=== PATIENT | female | born 1955 | race Two or more races ===

== ENCOUNTER 2019-06-21 22:27 | Inpatient (IN) | payer OTHER ==
[~2019-06-21] VITALS: Ht 162.6 cm; Wt 59.0 kg
[~2019-06-21 22:27] MED LIST: CRANBERRY425 MG GT; DOCUSATE SODIU100 MG GT; FERROUS SULFAT325 MG GT; FLORASTOR250 MG GT; MAGNESIUM400 M1 GT; MIDODRINE HCL5 MG GT; NORCO 5-325 TA1 EACH GT; OMEPRAZOLE40 M1 GT; SIMVASTATIN10 MG GT; VITAMIN C500 M1 GT
[2019-06-21 22:30] VITALS: BP 96/61
--- NOTE | 2019-06-21 22:30 | NUR ---
ED Nurse Note: Patient brought in by ambulance from [facility] d/t abnormal labs. Patient is on vent and trach, G-tube on upper left abdomen. Patient aao x 2 and non ambulatory. Patient changed into gown and placed on buffet manager. 18G IV on right hand and 20g IV on left forearm established, blood drawn and sent to lab. 16F urinary cueva inserted, patent and draining, urine sample sent to lab. No acute distress noted during assessment.
--- NOTE | 2019-06-21 22:46 | NUR ---
RESPIRATORY NOTE: Pt came in ED via ambulance. Pt is vent-dependent. Placed her on vet w/ her settings from her previous facility. Pt now on SIMV 6, 500VT, 40%, PEEP +5. PS 10. Pt is trach-dependent w/ a cuffed, Portex 8 tube. Pt is alert, follows commands, eyes closed most of the time. B/S rajat. rhonchi/diminished, sxn small amounts of thick, pale-yellow secretions. Vent plugged into red outlet, ambubag at bedside. Pt in no apparent distress at this time. Will continue to monitor pt.
[2019-06-21] MEDS ORDERED: Acetaminophen 650 MG SUPP RECTAL ONE ×2 (22:51→23:00)
--- NOTE | 2019-06-21 22:57 | NUR ---
ED Nurse Note: Xray at bedside
--- NOTE | 2019-06-21 23:04 | Emergency Room Report ---
History of Present Illness General Chief Complaint: Abnormal Labs Source: Patient, Medical Record Present Illness HPI This is a 63-year-old female with a history of multiple sclerosis. She is also senior care patient who is vent dependent and has a feeding tube. She presents with chief complaint of abnormal lab. She was just admitted here last week and discharged a couple days ago for chest pain work-up. She did have anemia of chronic disease. She had work-up for chest pain that was negative. Present today with chief complaint of abnormal lab. Per senior care note hemoglobin is 6.9 and white count was elevated at 14.88. Unable to get any history from this patient. She is nonverbal. Here she noted to be warm and a rectal temperature was 101. Allergies: Coded Allergies: PENICILLINS (Verified Allergy, Unknown, 06/11/19) Patient History Past Medical History: HTN, CAD Past Surgical History: other - G-Tube Pertinent Family History: none Social History: Denies: smoking Last Menstrual Period: na Now: No Immunizations: other Reviewed Nursing Documentation: PMH: Agreed; PSxH: Agreed Nursing Documentation-PMH Past Medical History: No History, Except For Hx Cardiac Problems: Yes Hx Hypertension: Yes Hx Cancer: No Hx Gastrointestinal Problems: Yes - incontinent, GTUBe Hx Neurological Problems: No Review of Systems All Other Systems: limited - secondary to her condition Physical Exam Vital Signs Date Time Temp Pulse Resp B/P (MAP) Pulse Ox O2 Delivery O2 Flow Rate FiO2 06/21/19 22:23 97.9 72 15 93/53 (66) 100 06/21/19 22:42 40 Vitals with fever and hypotension. Rectal temp 101 Sp02 EP Interpretation: reviewed, normal General Appearance: well appearing, alert, mild distress, cachetic, thin, Chronically Ill Head: normocephalic, atraumatic Eyes: bilateral eye PERRL, bilateral eye EOMI ENT: hearing grossly normal, normal pharynx Neck: full range of motion, supple, no meningismus, tracheotomy Respiratory: chest non-tender, rhonchi Cardiovascular #1: regular rate, rhythm, no murmur Gastrointestinal: normal bowel sounds, non tender, no mass, no organomegaly, no bruit, non-distended Musculoskeletal: back normal, normal range of motion Neurologic: alert, grossly normal Skin: warm/dry Lymphatic: no adenopathy Procedures Critical Care Time Critical Care Time Critical care is mandated in this patient who presented with sepsis from HCAP. Patient require my urgent intervention to attenuate the risks of metabolic collapse which may lead to cardiovascular collapse and . Critical care time is 35 minutes excluding any reportable procedure. Critical care time included evaluation, multiple reevaluation, looking at old charts, interpreting laboratory and diagnostic data, discussing case with patient and family and consultants, and charting. Medical Decision Making Diagnostic Impression: Primary Impression: Sepsis Qualified Codes: A41.9 - Sepsis, unspecified organism Additional Impressions: HCAP (healthcare-associated pneumonia) UTI (urinary tract infection) Qualified Codes: N30.00 - Acute cystitis without hematuria Anemia Qualified Codes: D64.9 - Anemia, unspecified ER Course This patient presents with abnormal lab. halfway reported her hemoglobin at 6.9. Here is 8. This is at baseline for her. She is noted to have a fever and has pneumonia on the chest x-ray. She is treated for healthcare associated pneumonia. Her pressure improved after IV fluids. Will admit for IV antibiotics and IV fluid. I contacted Dr. White for admission. EKG Diagnostic Results Rate: normal Rhythm: NSR ST Segments: no acute changes Rhythm Strip Diag. Results EP Interpretation: yes Rate: 86 Rhythm: NSR, no PVC's, no ectopy Chest X-Ray Diagnostic Results Chest X-Ray Diagnostic Results : Chest X-Ray Ordered: Yes # of Views/Limited/Complete: 1 View Indication: Shortness of Breath EP Interpretation: Yes Interpretation: no effusion, no pneumothorax, no acute cardiopulmonary disease, other - LLL infiltrate Impression: Other - LLL infiltrate Electronically Signed by: Norm Womack MD Last Vital Signs Date Time Temp Pulse Resp B/P (MAP) Pulse Ox O2 Delivery O2 Flow Rate FiO2 06/21/19 22:42 79 9 40 06/21/19 22:23 97.9 93/53 (66) 100 Status: unchanged Disposition: ADMITTED INPATIENT Condition: Serious Norm Womack MD Jun 21, 2019 23:03
[2019-06-21 23:13] LABS: BASOPHILS % (AUTO) 0.6 % (0.0-2.0); HEMATOCRIT 23.5 % (37.0-47.0); MEAN CORPUSCULAR VOLUME 85 FL (80-99); MONOCYTES % (AUTO) 8.1 % (1.0-10.0); NEUTROPHILS % (AUTO) 80.3 % (45.0-75.0); PLATELET COUNT 358 K/UL (150-450); RED BLOOD COUNT 2.78 M/UL (4.20-5.40); RED CELL DISTRIBUTION WIDTH 12.2 % (11.6-14.8); WHITE BLOOD COUNT 15.8 K/UL (4.8-10.8)
[2019-06-21 23:15] LABS: APPEARANCE,URINE CLEAR; BILIRUBIN, URINE NEGATIVE (NEGATIVE); COLOR,URINE PALE YELLOW; GLUCOSE, URINE (UA) NEGATIVE (NEGATIVE); KETONES,URINE NEGATIVE (NEGATIVE); LEUKOCYTE ESTERASE ,URINE 3+ (NEGATIVE); NITRITE,URINE NEGATIVE (NEGATIVE); PH,URINE 9 (4.5-8.0); PROTEIN,URINE 2+ (NEGATIVE); UROBILINOGEN,URINE NORMAL MG/DL (0.0-1.0)
[2019-06-21] MEDS ORDERED: Cefepime HCl 1 GM in D5W 55 ML IVPB ONE (23:15)
[2019-06-21 23:17] LABS: ANION GAP 13 mmol/L (5-15); BLOOD UREA NITROGEN 25 mg/dL (7-18); CALCIUM 9.5 MG/DL (8.5-10.1); CARBON DIOXIDE 24 MMOL/L (21-32); CHLORIDE 104 MMOL/L (98-107); CREATININE 0.9 MG/DL (0.55-1.30); POTASSIUM 4.4 MMOL/L (3.5-5.1); SODIUM 140 MMOL/L (136-145)
[2019-06-21 23:30] LABS: ALANINE AMINOTRANSFERASE 54 U/L (12-78); ALBUMIN 2.3 G/DL (3.4-5.0); ALBUMIN/GLOBULIN RATIO 0.5 (1.0-2.7); ALKALINE PHOSPHATASE 261 U/L (46-116); ASPARTATE AMINO TRANSFERASE 38 U/L (15-37); BILIRUBIN,TOTAL 0.4 MG/DL (0.2-1.0); CKMB < 0.5 NG/ML (0.0-3.6); CREATINE KINASE < 7 U/L (26-308)
--- NOTE | 2019-06-21 23:48 | NUR ---
ED Nurse Note: Left forearm redness and itching, ERMD notified, per Dr. Womack, continue to infuse IV antibiotics.
--- NOTE | 2019-06-21 23:48 | NUR ---
ED Nurse Note: Rechecked rectal temperature, 101.7 F, ERMD aware.
[2019-06-22] VITALS (9 sets, daily range): BP systolic 90–125; BP diastolic 53–65
--- NOTE | 2019-06-22 00:01 | Emergency Room Report ---
Sepsis Event Note Evaluation Current Stage of Sepsis: Sepsis Possible Source: Pulmonary Focused Exam Allergies: Coded Allergies: PENICILLINS (Verified Allergy, Unknown, 06/11/19) Date Exam Occurred: Jun 22, 2019 Time Exam Occurred: 00:01 Laboratory Studies Laboratory Tests Test 06/21/19 22:05 06/21/19 23:06 White Blood Count 15.8 K/UL (4.8-10.8) H Red Blood Count 2.78 M/UL (4.20-5.40) L Hemoglobin 8.0 G/DL (12.0-16.0) L Hematocrit 23.5 % (37.0-47.0) L Mean Corpuscular Volume 85 FL (80-99) Mean Corpuscular Hemoglobin 28.9 PG (27.0-31.0) Mean Corpuscular Hemoglobin Concent 34.1 G/DL (32.0-36.0) Red Cell Distribution Width 12.2 % (11.6-14.8) Platelet Count 358 K/UL (150-450) Mean Platelet Volume 5.2 FL (6.5-10.1) L Neutrophils (%) (Auto) 80.3 % (45.0-75.0) H Lymphocytes (%) (Auto) 10.0 % (20.0-45.0) L Monocytes (%) (Auto) 8.1 % (1.0-10.0) Eosinophils (%) (Auto) 1.0 % (0.0-3.0) Basophils (%) (Auto) 0.6 % (0.0-2.0) Sodium Level 140 MMOL/L (136-145) Potassium Level 4.4 MMOL/L (3.5-5.1) Chloride Level 104 MMOL/L (98-107) Carbon Dioxide Level 24 MMOL/L (21-32) Anion Gap 13 mmol/L (5-15) Blood Urea Nitrogen 25 mg/dL (7-18) H Creatinine 0.9 MG/DL (0.55-1.30) Estimat Glomerular Filtration Rate > 60 mL/min (>60) Glucose Level 88 MG/DL (74-106) Lactic Acid Level 1.30 mmol/L (0.4-2.0) Calcium Level 9.5 MG/DL (8.5-10.1) Total Bilirubin 0.4 MG/DL (0.2-1.0) Aspartate Amino Transf (AST/SGOT) 38 U/L (15-37) H Alanine Aminotransferase (ALT/SGPT) 54 U/L (12-78) Alkaline Phosphatase 261 U/L (46-116) H Total Creatine Kinase < 7 U/L (26-308) L Creatine Kinase MB < 0.5 NG/ML (0.0-3.6) Creatine Kinase MB Relative Index 0.0 Troponin I 0.000 ng/mL (0.000-0.056) Total Protein 7.3 G/DL (6.4-8.2) Albumin 2.3 G/DL (3.4-5.0) L Globulin 5.0 g/dL Albumin/Globulin Ratio 0.5 (1.0-2.7) L Urine Color Pale yellow Urine Appearance Clear Urine pH 9 (4.5-8.0) Urine Specific Palms 1.015 (1.005-1.035) Urine Protein 2+ (NEGATIVE) H Urine Glucose (UA) Negative (NEGATIVE) Urine Ketones Negative (NEGATIVE) Urine Blood Negative (NEGATIVE) Urine Nitrite Negative (NEGATIVE) Urine Bilirubin Negative (NEGATIVE) Urine Urobilinogen Normal MG/DL (0.0-1.0) Urine Leukocyte Esterase 3+ (NEGATIVE) H Urine RBC 0-2 /HPF (0 - 2) Urine WBC 20-30 /HPF (0 - 2) H Urine Squamous Epithelial Cells Few /LPF (NONE/OCC) Urine Bacteria Few /HPF (NONE) Vital Signs Last 24 Hour Vital Signs Date Time Temp Pulse Resp B/P (MAP) Pulse Ox O2 Delivery O2 Flow Rate FiO2 06/21/19 23:22 101.7 06/21/19 22:42 79 9 40 06/21/19 22:30 101.2 82 18 96/61 100 Trach Collar 40 06/21/19 22:23 97.9 72 15 93/53 (66) 100 Respiratory Exam: Rhonchi Cardiovascular Exam: RRR Capillary Refill: Less Than 2 Seconds Peripheral Pulse: Strong Pulse Location: Radial Skin Exam: Normal Turgor Norm Womack MD Jun 22, 2019 00:01
[2019-06-22] MEDS ORDERED: ATORVASTATIN CA20 MG GT (00:13)
[2019-06-22] MEDS ORDERED: Acetaminophen 650 MG SUPP RECTAL PRN (00:15)
--- NOTE | 2019-06-22 00:39 | NUR ---
ED Nurse Note: Report given to ALEX Daniels in SDU.
--- NOTE | 2019-06-22 01:20 | NUR ---
ED Nurse Note: Patient transferred via gurney on ACLS protocol and lunchroom monitor to SDU accompanied by 2 RNs and RT in stable condition.
--- NOTE | 2019-06-22 01:30 | NUR ---
NURSE NOTES: Received report from ALEX Suazo, pt. in bed awake, opens eyes to name- A/O x's 1-2, no signs or symptoms of acute cardiac or respiratory distress noted, bed alarm on, side rails up x's3 and safety brakes engaged, conveyor monitor placed, bed side teaching done, pt. oriented to room, full body assessment done- skin intact, pt. is on ventilator- SIMV 6, TV 500, Fio2 at 40%, peep 5 and pressure support 10- no distress noted- pt. has G tube intact and patent- no residual noted, bed bath given and skin intact, LFA 20G- IV intact and patent, Rt. hand 18G- IV intact and patent, safety measures continued, will continue with plan of care. Will contact primary MD for admission orders- pt. remains stable.
--- NOTE | 2019-06-22 02:20 | NUR ---
NURSE NOTES: Left message for DR. White for admitting orders- awaiting for call back from doctor.
--- NOTE | 2019-06-22 03:11 | NUR ---
NURSE NOTES: Left second message for Dr. White, for admission orders- awaiting for call back from doctor. .
--- NOTE | 2019-06-22 03:53 | NUR ---
NURSE NOTES: Left third message for Dr. White, for admission orders- awaiting for call back from doctor.
--- NOTE | 2019-06-22 03:54 | NUR ---
NURSE NOTES: miller supervisor Rahel tapia unable to reach DR. White for admission orders- she will try to call him and let me know what happens.
--- NOTE | 2019-06-22 04:05 | NUR ---
NURSE NOTES: per planning supervisor- okay to call DR. Shane as we were not able to reach DR. White.
--- NOTE | 2019-06-22 04:09 | NUR ---
NURSE NOTES: called DR. Patel- for admission orders- per DR. Shane to continue all home medications except- Floraster- all nursing homes medications- read back to doctor, also to continue feeding as fpc Osmolite 1.5 at 50cc/hr- for 20 hours, vent settings to continue Simv 6, TV 500, Fio2 40%, peep 5, and pressure support 10- orders read back and carried out.
[2019-06-22] MEDS: Magnesium Oxide 400mg tab GT SCH (08:13)
--- NOTE | 2019-06-22 09:53 | NUR ---
NURSE NOTES: Left message with DR. Guerrero office- with Anupama- if doctor has any additional orders for last nights admission.
--- NOTE | 2019-06-22 10:19 | NUR ---
NURSE NOTES: Orders received by DR. White- will carry out orders.
[2019-06-22] MEDS ORDERED: Acetaminophen 650mg/20.3ml GT PRN (10:30)
--- NOTE | 2019-06-22 10:34 | Diagnostic Imaging Report ---
Indication: Shortness of breath Technique: One view of the chest Comparison: 06/14/2019 Findings: Again demonstrated is retrocardiac and left lower lobe consolidation, which appears increased since prior study. There is also some patchy consolidation in the left upper lobe. Again demonstrated is right basilar atelectasis. The heart size is normal. There is a tracheostomy in good position. Also noted are a gastrostomy and right upper quadrant surgical clips. Impression: Increased retrocardiac and left lower lobe consolidation
--- NOTE | 2019-06-22 10:38 | NUR ---
NURSE NOTES: made doctor aware of Hemiglobin- per DR. White- to order 2 Units PRBC and order SCD for DVT- orders carried out.
--- NOTE | 2019-06-22 10:54 | NUR ---
*-* INSURANCE *-* ALL AVAILABLE CLINICALS HAVE BEEN FAXED TO: JARRED DORSEY AUTH# [id number] FAX ALL CLINICALS TO [phone]
--- NOTE | 2019-06-22 11:03 | NUR ---
HAND-OFF: Report given to Edelmira RN, pt. remains stable and no signs of distress noted.
--- NOTE | 2019-06-22 11:04 | NUR ---
HAND-OFF: Report given to Luis RN, pt. remains stable and no sigsn of distress noted- aware to f/u w/ on zosyn as pt. has pcn allergies. and also blood transfuion.
--- NOTE | 2019-06-22 11:25 | NUR ---
HAND-OFF: Report given to . received bed side report from Kumar JOHNSON.
--- NOTE | 2019-06-22 11:25 | NUR ---
NURSE NOTES: RECEIVED PT WITH HOB ELEVATED 45 DEGREE AWAKE & ALERT TRACH TO VENT.PT TOLERATING WELL CURRENTS VENT SETTINGS,RENDERED TRACH CARE AND ORAL HYGIENE,MOD AMT OF WHITE TICK SECRETIONS NOTED.PT INCONT OF URINE,RENDERED TOTAL NSG CARE DONE ,GIVEN BATH BATH AND PERINEAL CARE .PT KEEP CLEAN AND DRY POSSIBLE.PT USING PUR-WICK AT THIS TIME. WILL CONT TO MONITOR.
--- NOTE | 2019-06-22 11:41 | NUR ---
RD ASSESSMENT & RECOMMENDATIONS SEE CARE ACTIVITY FOR COMPLETE ASSESSMENT DAILY ESTIMATED NEEDS: Needs based on Critical care, underweight 44kg 30-35 kcals/kg 3422-4135 total kcals 1.2-2 g protein/kg 53-88 g total protein 25-30 mL/kg 0855-4486 total fluid mLs NUTRITION DIAGNOSIS: Swallowing difficulty related respiratory status as evidenced by pt is Trach and PEG dep. CURRENT TF:Osmolite 1.5 @ 50ml/hr x 20 hrs ENTERAL NUTRITION RECOMMENDATIONS: Osmolite 1.5 @ 50ml/hr x 20 hrs to provide 1000ml, 1500kcal, 62.7g prot, 762ml free water - Maintain current TF- meets 100% est kcal/prot needs - Flush per MD, HOB over 30 degrees ADDITIONAL RECOMMENDATIONS: 1) Calibrated bedscale wt 2) Check lytes daily, replete as needed
[2019-06-22] MEDS ORDERED: Piperacillin/Tazobactam 3.375 GM in NS 110 ML IVPB SCH (12:00)
--- NOTE | 2019-06-22 12:38 | NUR ---
CASE MANAGEMENT:INITIAL REVIEW 63 YR OLD FEMALE BIBA FROM [facility] CC;ABNORMAL LABS SI;SEPSIS. HCA PNA. ANEMIA. UTI. T 101.7 P 85 RR 9 BP 93/53 100% TRACH COLLAR WBC 15.8 H/H 8.0/23.5 BUN 25 ALK PHOS 261 UA+ PROTEIN, LEUKOCYTE, WBC CXR - Increased retrocardiac and left lower lobe consolidation IS;IVF NS BOLUS X1 ACETAMINOPHEN SUPP RECTAL X1 CEFEPIME IV X1 LEVAQUIN IV X1 ADMITTED TO SDU SDU STATUS DCP;FROM [facility]
--- NOTE | 2019-06-22 13:30 | NUR ---
NURSE NOTES:PLACED A TELEPHONE CALL TO PRADEEP HUSAIN REGARDING WE NEED TELEPHONE CONSENT FOR BLOOD TRANSFUSION. MESSAGE LEFT ON EMERGENCY VOICE MAIL . A WAITING FOR MR HUSAIN TO CALL ME BACK. NADEEM VELAZQUEZ OF BLOOD BANK MADE AWARE & NOTIFIED REGARDING NO CONSENT AVAILABLE AT THIS TIME AND AWAITING FOR MR RODRIGUE PRADEEP IS THE SON OF THE PT. WILL CONT TO MONITOR.
--- NOTE | 2019-06-22 13:34 | NUR ---
RADIOLOGY DEPT., CHEST X-RAY DONE.-P.DYE
[2019-06-22] MEDS: Vancomycin 750 MG in NS 275 ML IVPB SCH (14:23)
--- NOTE | 2019-06-22 14:48 | Diagnostic Imaging Report ---
Indication: Cough Technique: One view of the chest Comparison: 06/21/2019 Findings: There is a tracheostomy. There is increased infiltrate and pleural fluid on the left. Right lung and pleural space are clear. The heart size is normal. Cholecystectomy clips are again demonstrated Impression: Increasing left-sided infiltrate and pleural fluid, over one day
--- NOTE | 2019-06-22 19:00 | NUR ---
NURSE NOTES:PT HGB 8.O, DR MAR ORDER TO GIVE 2UNITS OF PRBC. STARTED ON 1ST UNIT OF BRBC TRANSFUSION PER M.D ORDERS.PT TOLERATING WELL BLOOD TRANSFUSION ,NO S/S OF ANY ADVERSE REACTION NOTED . WILL CONT TO MONITOR.
--- NOTE | 2019-06-22 19:10 | NUR ---
NURSE NOTES: Received report from ALEX Smith, pt. in bed awake, opens eyes to name and spontaneously- A/O x's 1-2, no signs or symptoms of acute cardiac or respiratory distress noted, bed alarm on, side rails up x's3 and safety brakes engaged, handicraft or hobby shop manager on, pt. is on ventilator- SIMV 6, TV 500, Fio2 at 40%, peep 5 and pressure support 10- no distress noted- pt. has G tube intact and patent running Osmolite 1.5 at 50cc/hr- no residual noted, HOB elevated, LFA 20G- IV intact and patent- running 1 unit of PRBC- pt. appears to be tolerating blood transfusion well, Rt. hand 18G- IV intact and patent running NS at 100cc/hr, safety measures continued, will continue with plan of care.
--- NOTE | 2019-06-22 19:15 | NUR ---
NURSE NOTES: PT TOLERATING WELL BLOOD TRANSFUSION, NO EVIDENCE OF ANY ADVERSE REACTIONS NOTED AT THIS TIME,V/S STABLE.WILL CONT TO MONITOR.
--- NOTE | 2019-06-22 19:17 | NUR ---
HAND-OFF: Report given to .ABIMBOLA JOHNSON.
--- NOTE | 2019-06-22 19:28 | NUR ---
NURSE NOTES: order received by DR. White to not order Zosyn as pt. has allergies to PCN- but to order Cefepime 1 gram IVPB q12 hours-orders carried out.
[2019-06-22] MEDS ORDERED: Cefepime HCl 1 GM in D5W 55 ML IVPB SCH ×2 (21:00→23:00)
--- NOTE | 2019-06-22 21:11 | NUR ---
NURSE NOTES: 1 unit of PRBC complete pt. appears to have tolerated blood transfusion well- VS temp 98.1 axillary, resp 18, pulse 63, b/p 114/59 and pulse ox 100%-will continue to monitor pt. and start 2nd unit of PRBC.
--- NOTE | 2019-06-22 21:30 | NUR ---
NURSE NOTES: 2nd unit of PRBC started- pre transfusion VS temp 98.0 axillary, pulse 70, b/p 116/65, pulse ox 100% and resp 18- will continue to monitor pt. and with plan of care.
--- NOTE | 2019-06-22 21:45 | NUR ---
NURSE NOTES: 15 minutes after blood transfusion vital signs taken -pt. appears to be tolerating blood transfusion well-no distress noted, B/P 104/55, pulse ox 100%, respirations 18, pulse 60 and temp 98.1 axillary- will continue to monitor pt. and with plan of care.
[2019-06-23] VITALS: BP 108/60
--- NOTE | 2019-06-23 | NUR ---
NURSE NOTES: blood transfusion complete - pt. appears to have tolerated blood transfusion well- no allergic reactions noted- Vital signs respirations 20, pulse ox 100%, b/p 108/60, temp 98.0 axillary and pulse 65- will continue to monitor pt. and with plan of care.
[2019-06-23] MEDS: Cefepime HCl 1 GM in D5W 55 ML IVPB SCH ×3 (00:07→23:00)
[2019-06-23] MEDS: Vancomycin 750 MG in NS 275 ML IVPB SCH ×2 (01:42→14:04)
[2019-06-23 04:00] VITALS: BP 100/56
[2019-06-23 04:56] LABS: ANION GAP 9 mmol/L (5-15); BLOOD UREA NITROGEN 14 mg/dL (7-18); CARBON DIOXIDE 25 MMOL/L (21-32); CHLORIDE 110 MMOL/L (98-107); CREATININE 0.7 MG/DL (0.55-1.30); POTASSIUM 3.6 MMOL/L (3.5-5.1); SODIUM 144 MMOL/L (136-145)
[2019-06-23 05:00] LABS: BASOPHILS % (AUTO) 0.7 % (0.0-2.0); EOSINOPHILS % (AUTO) 3.3 % (0.0-3.0); HEMATOCRIT 29.2 % (37.0-47.0); HEMOGLOBIN 10.1 G/DL (12.0-16.0); LYMPHOCYTES % (AUTO) 12.7 % (20.0-45.0); MEAN CORPUSCULAR VOLUME 86 FL (80-99); NEUTROPHILS % (AUTO) 72.3 % (45.0-75.0); PLATELET COUNT 294 K/UL (150-450); RED CELL DISTRIBUTION WIDTH 12.3 % (11.6-14.8); WHITE BLOOD COUNT 11.4 K/UL (4.8-10.8)
--- NOTE | 2019-06-23 07:14 | NUR ---
HAND-OFF: Report given to All Rn, pt. remains stable and no signs of distress noted.
--- NOTE | 2019-06-23 07:15 | NUR ---
NURSE NOTES: Receive patient in bed. Vent dependent. Purewick inplace. No respiratory distress. On continuous IVF per order. SB in personnel monitor. Contact isolation observed. Will continue plan of care.
[2019-06-23 08:00] VITALS: BP 91/47
--- NOTE | 2019-06-23 08:32 | General Progress Note ---
Assessment/Plan Assessment/Plan: fevers possible sepsis pneumonia UTI MS respiratory failure anemia s/p transfusion PLAN antibiotics check final cultures monitor fever curve monitor labs vent for now impression, plan, and exam edited and reviewed in detail care discussed with RN Subjective ROS Limited/Unobtainable: Yes Allergies: Coded Allergies: PENICILLINS (Verified Allergy, Unknown, 06/11/19) Subjective care noted no fevers Objective Last 24 Hour Vital Signs Date Time Temp Pulse Resp B/P (MAP) Pulse Ox O2 Delivery O2 Flow Rate FiO2 06/23/19 04:37 60 18 40 06/23/19 04:00 40 06/23/19 04:00 Mechanical Ventilator 06/23/19 04:00 98.1 62 18 100/56 (71) 100 06/23/19 03:34 56 06/23/19 03:06 61 20 40 06/23/19 01:05 86 23 40 06/23/19 00:00 98.0 65 20 108/60 (76) 100 06/23/19 00:00 Mechanical Ventilator 06/23/19 00:00 40 06/23/19 00:00 74 06/22/19 23:08 63 25 40 06/22/19 21:45 98.1 60 18 104/55 (71) 100 06/22/19 21:30 98.0 70 18 116/65 (82) 100 06/22/19 21:26 59 18 40 06/22/19 21:09 98.1 63 18 110/57 (74) 100 06/22/19 20:00 40 06/22/19 20:00 98.0 64 18 110/57 (74) 100 06/22/19 20:00 Mechanical Ventilator 06/22/19 19:43 72 06/22/19 18:47 53 17 40 06/22/19 17:08 61 14 40 06/22/19 16:00 98.5 98 18 125/61 (82) 98 06/22/19 16:00 72 06/22/19 16:00 Mechanical Ventilator 06/22/19 14:29 68 15 40 06/22/19 13:09 68 12 40 06/22/19 12:00 102 06/22/19 12:00 Mechanical Ventilator 06/22/19 12:00 97.5 106 19 123/59 (80) 98 06/22/19 10:50 73 18 40 06/22/19 09:19 76 26 40 Intake and Output 06/22/19 06/23/19 19:00 07:00 Intake Total 1416.666 ml 2183.666 ml Output Total 200 ml Balance 1416.666 ml 1983.666 ml Free Water 200 ml 50 ml IV Total 866.666 ml 1533.666 ml Tube Feeding 350 ml 600 ml Output Urine Total 200 ml # Voids 3 2 # Bowel Movements 2 Laboratory Tests 06/23/19 03:30: White Blood Count 11.4H, Red Blood Count 3.40L, Hemoglobin 10.1L, Hematocrit 29.2L, Mean Corpuscular Volume 86, Mean Corpuscular Hemoglobin 29.6, Mean Corpuscular Hemoglobin Concent 34.5, Red Cell Distribution Width 12.3, Platelet Count 294, Mean Platelet Volume 5.2L, Neutrophils (%) (Auto) 72.3, Lymphocytes ( %) (Auto) 12.7L, Monocytes (%) (Auto) 11.0H, Eosinophils (%) (Auto) 3.3H, Basophils (%) (Auto) 0.7, Sodium Level 144, Potassium Level 3.6, Chloride Level 110H, Carbon Dioxide Level 25, Anion Gap 9, Blood Urea Nitrogen 14, Creatinine 0.7, Estimat Glomerular Filtration Rate > 60, Glucose Level 104, Calcium Level 9.0 Height (Feet): 5 Height (Inches): 4.00 Weight (Pounds): 130 Objective WDWN NAD trach clear breath sounds bilaterally without rhonchi or wheeze [id number] without MRG NABS nontender no HSM; GT no CCE nonfocal weak Hank White MD Jun 23, 2019 08:32
[2019-06-23] MEDS: Magnesium Oxide 400mg tab GT SCH (09:37)
--- NOTE | 2019-06-23 11:45 | History and Physical Report ---
DATE OF ADMISSION: 06/22/2019 REASON FOR ADMISSION: Fever and anemia. HISTORY OF PRESENT ILLNESS: This is a 63-year-old female who was noted to have low hemoglobin at the [facility]. The patient was just recently discharged after an aggressive workup. The patient now presented with hemoglobin repeated at 8. White cell count is 15.8. The patient was also noted to have fever. The patient has mentioned just recently discharged from the hospital. PAST MEDICAL HISTORY: Notable for hypercholesterolemia, negative endoscopy and colonoscopy, multiple sclerosis, chronic respiratory failure, tracheostomy. MEDICATIONS: Reviewed. ALLERGIES: Reviewed. SOCIAL HISTORY: Resides at [facility]. PHYSICAL EXAMINATION: GENERAL: A well-developed female, chronically ill, debilitated. VITAL SIGNS: reviewed, sats 100%. HEENT: Negative. NECK: Supple. Tracheostomy in midline. LUNGS: With moderate breath sounds. CARDIAC: S1, S2. Regular rate and rhythm. ABDOMEN: Soft. G-tube. EXTREMITIES: No edema. LABORATORY DATA: Reviewed. White count 15.8, hemoglobin 8. Chemistries noted. BUN 25 and albumin is 2.3. IMPRESSION: 1. Respiratory failure. 2. Fever. 3. Possible sepsis. 4. Leukocytosis. 5. Anemia without any evidence of GI bleed. 6. Left-sided infiltrate with parapneumonic effusion. 7. Respiratory failure, chronic. 8. Tracheostomy. 9. Severe protein-calorie malnutrition. RECOMMENDATIONS: Supportive care, intravenous antibiotics. Transfuse hemoglobin monitor. Resume usp medications and follow clinically for further changes. Obtain ID evaluation. Follow up cultures and recommend further for changes and stabilize and discharge the patient back to nursing home facility. Hank White M.D. DR: SANDRA JOB#: [id number] CC: GORDON
[2019-06-23 12:00] VITALS: BP 111/60
--- NOTE | 2019-06-23 12:29 | NUR ---
CASE MANAGEMENT:INITIAL REVIEW 63 YR OLD FEMALE BIBA FROM [facility] CC;ABNORMAL LABS SI;SEPSIS. HCA PNA. ANEMIA. UTI. 101.7 81 9 93/53 100% TRACH FIO2 40% WBC 15.8 H/H 8.0/23.5 BUN 25 AST 38 CXR - Increased retrocardiac and left lower lobe consolidation IS;IVF NS BOLUS X1 CEFEPIME IV X1 LEVAQUIN IV X1 ADMITTED TO SDU SDU STATUS DCP;FROM [facility]
[2019-06-23 16:00] VITALS: BP 110/70
--- NOTE | 2019-06-23 19:24 | NUR ---
HAND-OFF: Report given to Richard Bess RN.
--- NOTE | 2019-06-23 19:25 | NUR ---
NURSE NOTES: Received report from Kathrin RN, pt. in bed awake, opens eyes to name and spontaneously- A/O x's 1-2, no signs or symptoms of acute cardiac or respiratory distress noted, bed alarm on, side rails up x's3 and safety brakes engaged, hospital monitor on, pt. is on ventilator- SIMV 6, TV 500, Fio2 at 40%, peep 5 and pressure support 10- no distress noted- pt. has G tube intact and patent running Osmolite 1.5 at 50cc/hr- no residual noted, HOB elevated, LFA 20G- IV intact and patent, Rt. hand 18G- IV intact and patent running NS at 100cc/hr, safety measures continued, will continue with plan of care.
[2019-06-23 20:00] VITALS: BP 109/58
[2019-06-24] VITALS: BP 111/61
[2019-06-24] MEDS: Vancomycin 750 MG in NS 275 ML IVPB SCH ×2 (01:29→14:12)
[2019-06-24 04:00] VITALS: BP 101/53
--- NOTE | 2019-06-24 07:12 | NUR ---
HAND-OFF: Report given to KathrinRN, pt. remains stable and no signs of distress noted.
--- NOTE | 2019-06-24 07:13 | NUR ---
NURSE NOTES: Received patient in bed. Vent dependent. No respiratory distress. On SIMV mode. On continuous IVF per order of NS running at 100ml/hour. SB in head of digital advertising & integration. Purewick remains inplace connected to suction device with canister. Contact isolation observed. Will continue plan of care.
[2019-06-24 08:00] VITALS: BP 102/55
--- NOTE | 2019-06-24 08:01 | General Progress Note ---
Assessment/Plan Assessment/Plan: fevers possible sepsis pneumonia UTI MS respiratory failure anemia s/p transfusion PLAN antibiotics as is check final cultures VRE colonized monitor fever curve monitor labs vent for now hope to dc soon impression, plan, and exam edited and reviewed in detail care discussed with RN Subjective ROS Limited/Unobtainable: Yes Allergies: Coded Allergies: PENICILLINS (Verified Allergy, Unknown, 06/11/19) Subjective care noted no fevers cultures reviewed Objective Last 24 Hour Vital Signs Date Time Temp Pulse Resp B/P (MAP) Pulse Ox O2 Delivery O2 Flow Rate FiO2 06/24/19 07:04 54 27 40 06/24/19 04:44 68 23 40 06/24/19 04:00 98.0 56 22 101/53 (69) 100 06/24/19 04:00 40 06/24/19 04:00 Mechanical Ventilator 06/24/19 03:34 50 06/24/19 02:46 58 23 40 06/24/19 00:45 62 19 40 06/24/19 00:00 97.4 52 20 111/61 (78) 100 06/24/19 00:00 Mechanical Ventilator 06/24/19 00:00 40 06/23/19 23:40 56 06/23/19 22:46 52 16 40 06/23/19 21:09 62 15 40 06/23/19 20:00 Mechanical Ventilator 06/23/19 20:00 40 06/23/19 20:00 98.1 54 22 109/58 (75) 100 06/23/19 19:38 58 06/23/19 18:59 53 18 40 06/23/19 17:30 56 20 40 06/23/19 16:00 98.1 57 20 110/70 (83) 100 06/23/19 16:00 Mechanical Ventilator 06/23/19 15:35 47 06/23/19 15:21 51 20 40 06/23/19 13:21 50 18 40 06/23/19 12:00 Mechanical Ventilator 06/23/19 12:00 97.2 60 18 111/60 (77) 100 06/23/19 11:32 50 06/23/19 11:15 53 27 40 06/23/19 09:16 50 15 40 06/23/19 08:15 66 Intake and Output 06/23/19 06/24/19 19:00 07:00 Intake Total 1738.333 ml 2122.666 ml Output Total 650 ml Balance 1738.333 ml 1472.666 ml Free Water 100 ml 50 ml IV Total 1088.333 ml 1472.666 ml Tube Feeding 450 ml 600 ml Other 100 ml Output Urine Total 650 ml # Voids 2 # Bowel Movements 2 Laboratory Tests 06/24/19 00:23: Vancomycin Level Trough 18.4H Height (Feet): 5 Height (Inches): 4.00 Weight (Pounds): 130 Objective WDWN NAD trach clear breath sounds bilaterally without rhonchi or wheeze [id number] without MRG NABS nontender no HSM; GT no CCE nonfocal weak Hank White MD Jun 24, 2019 08:01
[2019-06-24] MEDS: Magnesium Oxide 400mg tab GT SCH (08:24)
[2019-06-24 12:00] VITALS: BP 92/51
[2019-06-24] MEDS: Cefepime HCl 1 GM in D5W 55 ML IVPB SCH ×2 (13:23→23:14)
[2019-06-24] MEDS ORDERED: Tubing IV Secondary IV ONE (14:10)
[2019-06-24] MEDS ORDERED: NS 275ml ONE (14:10)
[2019-06-24] MEDS ORDERED: Tubing Blood Filter IV ONE (14:10)
--- NOTE | 2019-06-24 15:00 | NUR ---
NURSE NOTES: Patient's son at bedside.
[2019-06-24 16:00] VITALS: BP 102/52
--- NOTE | 2019-06-24 19:29 | NUR ---
HAND-OFF: Report given to Richard Bess RN.
--- NOTE | 2019-06-24 19:30 | NUR ---
NURSE NOTES: Received report from ALEX Pinon, pt. in bed awake, opens eyes to name and spontaneously- A/O x's 1-2, no signs or symptoms of acute cardiac or respiratory distress noted, bed alarm on, side rails up x's3 and safety brakes engaged, call light within easy reach, silk screen printer helper on, pt. is on ventilator- SIMV 6, TV 500, Fio2 at 40%, peep 5 and pressure support 10- no distress noted- pt. has G tube intact and patent running Osmolite 1.5 at 50cc/hr- no residual noted, HOB elevated, pure wick set to suction, Rt. hand 22G- IV intact and patent running NS at 100cc/hr, safety measures continued, will continue with plan of care.
[2019-06-24 20:00] VITALS: BP 108/63
[2019-06-25] VITALS: BP 114/69
[2019-06-25] MEDS: Vancomycin 750 MG in NS 275 ML IVPB SCH (00:27)
[2019-06-25 04:00] VITALS: BP 100/56
--- NOTE | 2019-06-25 07:02 | NUR ---
HAND-OFF: Report given to Jacek RN, pt. remains stable and no signs of distress noted.
--- NOTE | 2019-06-25 07:05 | NUR ---
NURSE NOTES: Report received from Maria Alejandra Daniels RN.pt asleep tolerating well, noted no resp distress with current ordered vent settings,no signs of pain or discomfort,S-Bradycardia on the monitor when asleep GT feeding Nepro at 20 ml/hr no residual noted,condom cath in placed draining yellow urine,SR up x2 HOB elevated,call light within reach ,bed lock in lowest position will continue with plans of care.
[2019-06-25 08:00] VITALS: BP 110/55
[2019-06-25] MEDS: Magnesium Oxide 400mg tab GT SCH (08:40)
[2019-06-25] MEDS ORDERED: Tubing IV Secondary IV ONE (10:01)
--- NOTE | 2019-06-25 10:36 | General Progress Note ---
Assessment/Plan Assessment/Plan: fevers possible sepsis pneumonia UTI MS respiratory failure anemia s/p transfusion PLAN antibiotics as is reviewed final cultures VRE colonized monitor fever curve monitor labs vent for now dc to snf impression, plan, and exam edited and reviewed in detail care discussed with RN Subjective ROS Limited/Unobtainable: Yes Allergies: Coded Allergies: PENICILLINS (Verified Allergy, Unknown, 06/11/19) Subjective care noted no fevers cultures reviewed and finalized Objective Last 24 Hour Vital Signs Date Time Temp Pulse Resp B/P (MAP) Pulse Ox O2 Delivery O2 Flow Rate FiO2 06/25/19 09:16 52 18 40 06/25/19 07:29 47 12 40 06/25/19 05:58 51 19 40 06/25/19 04:00 97.3 59 20 100/56 (71) 100 06/25/19 04:00 Mechanical Ventilator 06/25/19 03:34 49 06/25/19 03:25 56 17 40 06/25/19 00:38 62 18 40 06/25/19 00:00 Mechanical Ventilator 06/25/19 00:00 40 06/25/19 00:00 97.9 58 20 114/69 (84) 100 06/24/19 23:40 51 06/24/19 22:54 56 17 40 06/24/19 21:19 59 17 40 06/24/19 20:00 97.7 54 22 108/63 (78) 100 06/24/19 20:00 Mechanical Ventilator 06/24/19 20:00 40 06/24/19 19:47 52 06/24/19 19:04 48 18 40 06/24/19 17:30 49 13 40 06/24/19 16:54 50 06/24/19 16:00 98.4 47 11 102/52 (69) 100 06/24/19 16:00 Mechanical Ventilator 06/24/19 14:59 50 15 40 06/24/19 13:29 48 14 40 06/24/19 12:00 Mechanical Ventilator 06/24/19 12:00 98.1 47 18 92/51 (65) 100 06/24/19 11:40 46 06/24/19 11:21 46 13 40 Intake and Output 06/24/19 06/25/19 19:00 07:00 Intake Total 2180.000 ml 2279.666 ml Output Total 1200 ml 1400 ml Balance 980.000 ml 879.666 ml Free Water 100 ml 50 ml IV Total 1230.000 ml 1629.666 ml Tube Feeding 650 ml 600 ml Other 200 ml Output Urine Total 1200 ml 1400 ml # Bowel Movements 2 1 Height (Feet): 5 Height (Inches): 4.00 Weight (Pounds): 130 Objective WDWN NAD trach clear breath sounds bilaterally without rhonchi or wheeze [id number] without MRG NABS nontender no HSM; GT no CCE nonfocal weak Hank White MD Jun 25, 2019 10:36
--- NOTE | 2019-06-25 11:00 | NUR ---
NURSE NOTES: Pt stable wakes up on and off and does her own oral suctioning,denies any discomfort.
[2019-06-25 12:00] VITALS: BP 104/57
[2019-06-25] MEDS: Cefepime HCl 1 GM in D5W 55 ML IVPB SCH ×3 (12:59→23:14)
--- NOTE | 2019-06-25 15:00 | NUR ---
NURSE NOTES: Turned and repositioned incontinent of urine,pure wick reinforced,kept dry and clean.
[2019-06-25 16:00] VITALS: BP 130/72
--- NOTE | 2019-06-25 19:30 | NUR ---
HAND-OFF: Report given to Brina Tellez RN..
--- NOTE | 2019-06-25 19:35 | NUR ---
NURSE NOTES: Received report from Jacek RN. Patient in bed resting able to make needs known to staff. Trach to vent on SIMV mode Fi02 40% satting 100%.Denies any pain or discomfort. no s/s of acute distress noted. On continuous IVF per order of NS running at 100ml/hour. SB in entry rep HR 55. Purewick remains in place connected to suction device with canister. Contact isolation maintain and observed. Bed alarm on. bed locked and in low position. Right hand IV infiltrated, inserted new IV peripherally Right F/A #24 Will continue plan of care.
[2019-06-25 20:00] VITALS: BP 127/87
[2019-06-25] MEDS: Vancomycin 500mg/D5W 110ml IVPB SCH ×2 (21:31)
[2019-06-26] VITALS: BP 112/87
--- NOTE | 2019-06-26 02:00 | NUR ---
NURSE NOTES: Bed bath given tolerated well.
[2019-06-26 04:00] VITALS: BP 103/59
--- NOTE | 2019-06-26 07:15 | NUR ---
HAND-OFF: Report given to Jacek JOHNSON.
[2019-06-26 08:00] VITALS: BP 96/54
--- NOTE | 2019-06-26 08:00 | NUR ---
NURSE NOTES: received pt in the bed, awake, vent dependent, vital signs stable, no co pain, no SOB, skin warm and dry to touch, intact,incontinent, tolerate GT feeding well, bed in low position, call light within reach, HOB elevated.
[2019-06-26] MEDS: Magnesium Oxide 400mg tab GT SCH (08:33)
[2019-06-26] MEDS: Vancomycin 500mg/D5W 110ml IVPB SCH ×2 (08:34)
--- NOTE | 2019-06-26 08:45 | General Progress Note ---
Assessment/Plan Assessment/Plan: fevers possible sepsis pneumonia UTI MS respiratory failure anemia s/p transfusion PLAN antibiotics as is reviewed final cultures VRE colonized monitor fever curve monitor labs vent for now dc to snf when bed available impression, plan, and exam edited and reviewed in detail care discussed with RN Subjective ROS Limited/Unobtainable: Yes Allergies: Coded Allergies: PENICILLINS (Verified Allergy, Unknown, 06/11/19) Subjective care noted no fevers cultures reviewed and finalized Objective Last 24 Hour Vital Signs Date Time Temp Pulse Resp B/P (MAP) Pulse Ox O2 Delivery O2 Flow Rate FiO2 06/26/19 08:00 40 06/26/19 05:24 58 19 40 06/26/19 04:00 49 06/26/19 04:00 40 06/26/19 04:00 Mechanical Ventilator 06/26/19 04:00 98.8 53 12 103/59 (74) 99 06/26/19 02:56 50 17 40 06/26/19 01:05 59 17 40 06/26/19 00:00 55 06/26/19 00:00 Mechanical Ventilator 06/26/19 00:00 40 06/26/19 00:00 98.4 58 20 112/87 (95) 99 06/25/19 23:36 49 15 40 06/25/19 20:37 48 13 40 06/25/19 20:00 51 06/25/19 20:00 Mechanical Ventilator 06/25/19 20:00 40 06/25/19 20:00 98.2 63 20 127/87 (100) 99 06/25/19 19:15 60 18 40 06/25/19 17:20 50 18 40 06/25/19 17:11 56 06/25/19 16:00 99.3 57 14 130/72 (91) 99 06/25/19 16:00 Mechanical Ventilator 06/25/19 15:20 50 23 40 06/25/19 12:56 52 20 40 06/25/19 12:08 Mechanical Ventilator 06/25/19 12:00 64 06/25/19 12:00 98.8 56 15 104/57 (73) 100 06/25/19 11:20 60 18 40 06/25/19 09:16 52 18 40 Intake and Output 06/25/19 06/26/19 19:00 07:00 Intake Total 1955 ml 1930 ml Output Total 400 ml 800 ml Balance 1555 ml 1130 ml Free Water 220 ml 250 ml IV Total 955 ml 1020 ml Tube Feeding 600 ml 600 ml Other 180 ml 60 ml Output Urine Total 400 ml 800 ml Laboratory Tests 06/25/19 12:05: Vancomycin Level Trough 23.1H Height (Feet): 5 Height (Inches): 4.00 Weight (Pounds): 130 Objective WDWN NAD trach clear breath sounds bilaterally without rhonchi or wheeze [id number] without MRG NABS nontender no HSM; GT no CCE nonfocal weak Hank White MD Jun 26, 2019 08:45
--- NOTE | 2019-06-26 10:17 | NUR ---
*-* DISCHARGE PLANNING *-* PATIENT HAS BEEN REFERRED BACK TO: [facility] P: [phone] F: [phone] EFAX: [phone] EMAIL: [email or web address]
--- NOTE | 2019-06-26 11:03 | NUR ---
RD ASSESSMENT & RECOMMENDATIONS SEE CARE ACTIVITY FOR COMPLETE ASSESSMENT DAILY ESTIMATED NEEDS: Needs based on Critical care, underweight 44kg 30-35 kcals/kg 7554-3553 total kcals 1.2-2 g protein/kg 53-88 g total protein 25-30 mL/kg 3520-8515 total fluid mLs NUTRITION DIAGNOSIS: Swallowing difficulty related respiratory status as evidenced by pt is Trach and PEG dep. CURRENT TF:Osmolite 1.5 @ 50ml/hr x 20 hrs ENTERAL NUTRITION RECOMMENDATIONS: Osmolite 1.5 @ 50ml/hr x 20 hrs to provide 1000ml, 1500kcal, 62.7g prot, 762ml free water - Maintain current TF- meets 100% est kcal/prot needs - Flush per MD, HOB over 30 degrees ADDITIONAL RECOMMENDATIONS: 1) Calibrated bedscale wt 2) Check lytes daily, replete as needed
[2019-06-26] MEDS: Cefepime HCl 1 GM in D5W 55 ML IVPB SCH (11:46)
[2019-06-26 12:00] VITALS: BP 94/52
--- NOTE | 2019-06-26 14:30 | NUR ---
NURSE NOTES: pt discharge to [facility] as ordered by ambulance, condition stable, family aware, report given to Francine JOHNSON.
[2019-06-26] MEDS ORDERED: Tubing IV Secondary IV ONE (15:02)
--- NOTE | 2019-06-26 15:55 | NUR ---
*-* INSURANCE *-* ALL AVAILABLE CLINICALS HAVE BEEN FAXED TO: [facility]ORSE[facility] AUTH# [id number] FAX ALL CLINICALS TO [phone]
--- NOTE | 2019-06-27 22:32 | Discharge Summary ---
Discharge Summary Discharge Summary _ DATE OF ADMISSION: 06/22/2019 DATE OF DISCHARGE: 06/26/2019 DISCHARGED BY: Dr. White REASON FOR ADMISSION: 63 years old female with past medical history of multiple sclerosis, chronic respiratory failure with tracheostomy, hypercholesterolemia, resident of [facility] facility , was noted to be anemic and subsequently was sent for evaluation. Patient just recently was discharged from the hospital. Patient had negative endoscopy and colonoscopy. Laboratory work-up in ED revealed hemoglobin 8 , WBC 15.8. Patient was febrile. Chest x-ray revealed possible left lower lobe infiltrate. EKG revealed sinus rhythm, no acute ischemic changes troponin was negative. Lactic acid 1.3 . Stable electrolytes . BUN 25 , creatinine 0.9. Urinalysis revealed pyuria and few bacteria . Patient subsequently admitted for further management. HOSPITAL COURSE: Patient admitted to [facility]. Septic work-up initiated. Patient started on fluid resuscitation and empiric antibiotics. Ventilator support and tracheostomy care provided. Patient was followed -up with chest x-ray. Blood cultures were negative. Urine culture revealed Proteus . Influenza swab was negative. Hemoglobin and hematocrit were closely monitored with goal to keep hemoglobin above 7. Patient undergone transfusion of 2 units of packed red blood cells, while in the hospital ,. Prior to discharge hemoglobin 10.1 , hematocrit 29.2.. Strict aspiration precautions maintained. G-tube feeding with tube feeding formula , goal rate and protein supplements provided as per per diem registered nurse recommendation. Patient was able to tolerate feeding . Supportive care provided . Bowel regimen instituted. Patient clinically stabilized and was ready for transfer back to jail facility for continuation of care. FINAL DIAGNOSES: Possible sepsis Ventilator dependent respiratory failure with tracheostomy Left-sided infiltrate with parapneumonic effusion Proteus UTI Anemia , status post blood transfusion (no evidence of GI bleeding) Severe protein calorie malnutrition Multiple sclerosis DISCHARGE MEDICATIONS: List of medication was sent accepting facility. DISCHARGE INSTRUCTIONS: Patient was discharged to the jail facility. Follow up with medical doctor at the facility. I have been assigned to dictate discharge summary for this account. I was not involved in the patient's management. Vivi Dan NP Jun 27, 2019 22:32
== END 2019-06-26 14:30 | DRG 871 ==
LOC: EDBD 22:27 → EMR 23:05 → EDBEDREQ 23:43 → 2W 06-22 00:05 → EDBEDREQ 06-22 00:25
PROC: 30233N1 Transfusion of Nonautologous Red Blood Cells into Peripheral Vein, Percutaneous Approach (ICD-10-PCS; principal; 2019-06-22)
PROC: 5A1945Z Respiratory Ventilation, 24-96 Consecutive Hours (ICD-10-PCS; principal; 2019-06-22)
DX: A41.9 Sepsis, unspecified organism (principal); J18.9 Pneumonia, unspecified organism; E43 Unspecified severe protein-calorie malnutrition; J96.10 Chronic respiratory failure, unspecified whether with hypoxia or hypercapnia; Z99.11 Dependence on respirator [ventilator] status; N39.0 Urinary tract infection, site not specified; Z68.1 Body mass index [BMI] 19.9 or less, adult; G35 Multiple sclerosis; Z88.0 Allergy status to penicillin; Z43.0 Encounter for attention to tracheostomy; B96.4 Proteus (mirabilis) (morganii) as the cause of diseases classified elsewhere; E78.00 Pure hypercholesterolemia, unspecified; D64.9 Anemia, unspecified
CPT/HCPCS: 36415; 71045; 80048; 80053; 80202; 81003; 82550; 82553; 83605; 84484; 85025; 86710; 86850; 86900; 86901; 86920; 87040; 87081; 87086; 87181; 93005; 93970; 94002; 94003; 94664; 96365; 96368; 99291; J7030

== ENCOUNTER 2019-08-05 14:27 | Inpatient (IN) | payer OTHER ==
[~2019-08-05] VITALS: Ht 157.5 cm; Wt 51.0 kg
[~2019-08-05 14:27] MED LIST changes: +ATORVASTATIN CA20 MG GT
--- NOTE | 2019-08-05 14:41 | Emergency Room Report ---
History of Present Illness General Chief Complaint: Fever Source: EMS Present Illness HPI Patient brought in by S with respiratory therapy. Apparently patient has a fever. According to the respiratory therapist there is been thick secretions suctioned. Tylenol was administered prior to coming to the hospital. Patient is ventilator dependent with a tracheostomy due to chronic respiratory failure due to multiple sclerosis. Patient has a gastrostomy tube. The patient does not answer questions and will not open her eyes to commands but is moving all 4 extremities. The patient was last admitted June 22. Discharge diagnoses: Possible sepsis Ventilator dependent respiratory failure with tracheostomy Left-sided infiltrate with parapneumonic effusion Proteus UTI Anemia , status post blood transfusion (no evidence of GI bleeding) Severe protein calorie malnutrition Multiple sclerosis COVID-19 risk:Travel to affect: No Allergies: Coded Allergies: PENICILLINS (Verified Allergy, Unknown, 06/11/19) Patient History Limited by: medical condition Past Medical History: see triage record, old chart reviewed Past Surgical History: other - Trach and G-tube Social History Narrative [facility] Now: No Reviewed Nursing Documentation: PMH: Agreed; PSxH: Agreed Nursing Documentation-PMH Hx Cardiac Problems: Yes Hx Hypertension: Yes Hx Cancer: No Hx Gastrointestinal Problems: Yes - incontinent, GTUBe Hx Neurological Problems: No Review of Systems All Other Systems: limited Physical Exam Vital Signs Date Time Temp Pulse Resp B/P (MAP) Pulse Ox O2 Delivery O2 Flow Rate FiO2 08/05/19 14:28 99.9 98 12 92/62 (72) 96 Mechanical Ventilator Sp02 EP Interpretation: reviewed, normal General Appearance: no apparent distress, thin, Chronically Ill Head: normocephalic Eyes: bilateral eye normal inspection, bilateral eye PERRL ENT: dry mucus membranes Neck: tracheotomy Respiratory: no respiratory distress, rhonchi, wheezing Cardiovascular #1: regular rate, rhythm, no edema Cardiovascular #2: 2+ radial (L) Gastrointestinal: non tender, other - Gastrostomy tube, scaphoid Genitourinary: no CVA tenderness Musculoskeletal: normal range of motion Neurologic: other - Eyes closed not responding to verbal and not speaking Psychiatric: depressed affect Skin: warm/dry, other - male pattern alopecia Procedures Critical Care Time Critical Care Time Total Critical Care Time: 30 min bedside evaluation and treatment excludes procedures (EKG). Reason for critical care: septic shock Possible complications: hypotension, hypertension, [place], shock, arrhythmias, metabolic acidosis, end organ damage, respiratory failure. Interventions: sepsis resuscitation, antibiotics, repeat evaluations Course: Patient presents with fever and altered mentation. Sepsis resuscitation begun. Blood pressure transiently dropped however bolus continued. Antibiotics begun based on infectious source of left lung. Sepsis reevaluation with improved mentation. Blood pressure improved. Consultations: nursing staff, old records Performed by: Dr. Rizo Tolerated well condition = critical Medical Decision Making Diagnostic Impression: Primary Impression: Septic shock Additional Impressions: Pneumonia involving left lung Qualified Codes: J18.9 - Pneumonia, unspecified organism Leukocytosis Qualified Codes: D72.829 - Elevated white blood cell count, unspecified Volume depletion ER Course Ventilator dependent patient with multiple sclerosis presents with fever. Differential includes sepsis, pneumonia, UTI amongst others. History pneumonia is highly suspect. Evaluation with EKG, chest x-ray and labs. Patient treated with IV hydration. Based on labs and x-ray antibiotics most likely will be ordered. Complex patient with co-morbidities. EKG - no injury. CXR L infiltrate. WBC elevated. Antibiotics ordered 1525. BP low. Patient dry. Bolus to 30 ml/kg. Patient very dry and expected to be fluid responsive. Will continue to evaluate. Abx ordered. ABG good. 1540 Patient more responsive. Opens eyes and occasionally nods "yes". BP better after fluids. 1635 Laboratory Tests Test 08/05/19 14:45 08/05/19 15:19 08/05/19 18:20 White Blood Count 35.4 K/UL (4.8-10.8) *H Red Blood Count 3.47 M/UL (4.20-5.40) L Hemoglobin 9.9 G/DL (12.0-16.0) L Hematocrit 30.2 % (37.0-47.0) L Mean Corpuscular Volume 87 FL (80-99) Mean Corpuscular Hemoglobin 28.4 PG (27.0-31.0) Mean Corpuscular Hemoglobin Concent 32.7 G/DL (32.0-36.0) Red Cell Distribution Width 15.0 % (11.6-14.8) H Platelet Count 491 K/UL (150-450) H Mean Platelet Volume 5.5 FL (6.5-10.1) L Neutrophils (%) (Auto) % (45.0-75.0) Lymphocytes (%) (Auto) % (20.0-45.0) Monocytes (%) (Auto) % (1.0-10.0) Eosinophils (%) (Auto) % (0.0-3.0) Basophils (%) (Auto) % (0.0-2.0) Differential Total Cells Counted 100 Neutrophils % (Manual) 78 % (45-75) H Lymphocytes % (Manual) 14 % (20-45) L Monocytes % (Manual) 5 % (1-10) Eosinophils % (Manual) 0 % (0-3) Basophils % (Manual) 1 % (0-2) Band Neutrophils 2 % (0-8) Platelet Estimate Increased H Platelet Morphology Normal Polychromasia 1+ Anisocytosis 1+ Prothrombin Time 11.2 SEC (9.30-11.50) Prothrombin Time INR 1.1 (0.9-1.1) Activated Partial Thromboplast Time 30 SEC (23-33) Sodium Level 136 MMOL/L (136-145) Potassium Level 3.8 MMOL/L (3.5-5.1) Chloride Level 100 MMOL/L (98-107) Carbon Dioxide Level 23 MMOL/L (21-32) Anion Gap 13 mmol/L (5-15) Blood Urea Nitrogen 24 mg/dL (7-18) H Creatinine 0.8 MG/DL (0.55-1.30) Estimate Glomerular Filtration Rate > 60 mL/min (>60) Glucose Level 113 MG/DL (74-106) H Lactic Acid Level 1.70 mmol/L (0.4-2.0) Calcium Level 10.1 MG/DL (8.5-10.1) Phosphorus Level 2.1 MG/DL (2.5-4.9) L Magnesium Level 2.2 MG/DL (1.8-2.4) Total Bilirubin 0.3 MG/DL (0.2-1.0) Aspartate Amino Transferase (AST) 99 U/L (15-37) H Alanine Aminotransferase (ALT) 141 U/L (12-78) H Alkaline Phosphatase 445 U/L (46-116) H Total Creatine Kinase 23 U/L (26-308) L Troponin I 0.000 ng/mL (0.000-0.056) Pro-B-Type Natriuretic Peptide 1541 pg/mL (0-125) H Total Protein 8.0 G/DL (6.4-8.2) Albumin 2.7 G/DL (3.4-5.0) L Globulin 5.3 g/dL Albumin/Globulin Ratio 0.5 (1.0-2.7) L Lipase 129 U/L (73-393) Arterial Blood pH 7.420 (7.350-7.450) Arterial Blood Partial Pressure CO2 36.5 mmHg (35.0-45.0) Arterial Blood Partial Pressure O2 98.9 mmHg (75.0-100.0) Arterial Blood HCO3 23.1 mmol/L (22.0-26.0) Arterial Blood Oxygen Saturation 97.3 % (95-100) Arterial Blood Base Excess -1.0 (-2-2) Zain Test Positive Urine Color Pale yellow Urine Appearance Clear Urine pH 6 (4.5-8.0) Urine Specific [place] 1.005 (1.005-1.035) Urine Protein Negative (NEGATIVE) Urine Glucose (UA) Negative (NEGATIVE) Urine Ketones Negative (NEGATIVE) Urine Blood Negative (NEGATIVE) Urine Nitrite Negative (NEGATIVE) Urine Bilirubin Negative (NEGATIVE) Urine Urobilinogen Normal MG/DL (0.0-1.0) Urine Leukocyte Esterase Negative (NEGATIVE) Microbiology Date/Time Source Procedure Growth Status 08/05/19 15:00 Nasal Nares - Final Complete 08/05/19 15:00 Nasal Nares - Final Complete EKG Diagnostic Results Rate: normal Rhythm: NSR ST Segments: no acute changes - Nonspecific ST-T wave changes Rhythm Strip Diag. Results EP Interpretation: yes Rhythm: NSR, no PVC's, no ectopy Chest X-Ray Diagnostic Results Chest X-Ray Diagnostic Results : Chest X-Ray Ordered: Yes # of Views/Limited/Complete: 1 View Indication: Other EP Interpretation: Yes Interpretation: no effusion, no pneumothorax, other - L infiltrate Impression: Other Electronically Signed by: Electronically signed by Agapito Rizo MD Last Vital Signs Date Time Temp Pulse Resp B/P (MAP) Pulse Ox O2 Delivery O2 Flow Rate FiO2 08/06/19 01:28 68 17 35 08/06/19 00:00 Mechanical Ventilator 08/06/19 00:00 98.2 90/47 (61) 100 Status: improved Disposition: ADMITTED INPATIENT Condition: Critical Agapito Rizo MD Aug 05, 2019 14:41
[2019-08-05 15:19] LABS: HEMATOCRIT 30.2 % (37.0-47.0); HEMOGLOBIN 9.9 G/DL (12.0-16.0); MEAN CORPUSCULAR VOLUME 87 FL (80-99); PLATELET COUNT 491 K/UL (150-450); RED BLOOD COUNT 3.47 M/UL (4.20-5.40)
[2019-08-05 15:23] LABS: WHITE BLOOD COUNT 35.4 K/UL (4.8-10.8)
[2019-08-05 15:26] LABS: INR 1.1 (0.9-1.1)
[2019-08-05 15:29] LABS: ANION GAP 13 mmol/L (5-15); BLOOD UREA NITROGEN 24 mg/dL (7-18); CALCIUM 10.1 MG/DL (8.5-10.1); CARBON DIOXIDE 23 MMOL/L (21-32); CHLORIDE 100 MMOL/L (98-107); CREATININE 0.8 MG/DL (0.55-1.30); POTASSIUM 3.8 MMOL/L (3.5-5.1); SODIUM 136 MMOL/L (136-145)
[2019-08-05] MEDS ORDERED: cefTRIAXone 1 GM in NS 55 ML IVPB ONE (15:30)
[2019-08-05] MEDS ORDERED: Azithromycin 500 MG in D5W 275 ML IVPB ONE (15:30)
[2019-08-05] MEDS ORDERED: Vancomycin 1 GM in NS 275 ML IVPB ONE (15:30)
--- NOTE | 2019-08-05 15:30 | NUR ---
CATHRYN drawn, broadcasted, and report to Dr. Rizo
--- NOTE | 2019-08-05 15:30 | Diagnostic Imaging Report ---
History: ALOC Exam: XR CXR 1 VIEW Comparison: 06/22/2019 FINDINGS: Increased collapse, consolidated appearance of the retrocardiac left lower lobe with persistent left perihilar ill-defined opacity seen. The right lung is clear. Tracheostomy, percutaneous gastrostomy and cholecystectomy clips again seen. Cardiac silhouette not significantly changed in size. IMPRESSION: Increased collapse, consolidated appearance of the retrocardiac left lower lobe with persistent left perihilar ill-defined opacity seen. The right lung is clear. Tracheostomy, percutaneous gastrostomy and cholecystectomy clips again seen.
[2019-08-05 15:39] LABS: ALANINE AMINOTRANSFERASE 141 U/L (12-78); ALBUMIN 2.7 G/DL (3.4-5.0); ALBUMIN/GLOBULIN RATIO 0.5 (1.0-2.7); ALKALINE PHOSPHATASE 445 U/L (46-116); ASPARTATE AMINO TRANSFERASE 99 U/L (15-37); BILIRUBIN,TOTAL 0.3 MG/DL (0.2-1.0); CREATINE KINASE 23 U/L (26-308); PHOSPHORUS 2.1 MG/DL (2.5-4.9)
[2019-08-05 15:40] VITALS: BP 92/62
--- NOTE | 2019-08-05 15:40 | NUR ---
ER Nurse Note: Pt brought in by ambulace from [facility] d/t temp of 102.8F in AM. Per staff, tylenol was given and temp at 100.8F axalery. Pt arrived with trach, satting >95%. RT at bedside. Pt has g-tube; patent. Pt warm to touch; not verbal, follows slight commands but redirectable. ERMD at bedside. Will continue to montior.
[2019-08-05] MEDS ORDERED: Azithromycin 500mg Inj IV ONE (15:45)
[2019-08-05] MEDS ORDERED: Vancomycin 1gm vial IVPB ONE (17:41)
[2019-08-05 18:43] LABS: APPEARANCE,URINE CLEAR; BILIRUBIN, URINE NEGATIVE (NEGATIVE); COLOR,URINE PALE YELLOW; GLUCOSE, URINE (UA) NEGATIVE (NEGATIVE); KETONES,URINE NEGATIVE (NEGATIVE); LEUKOCYTE ESTERASE ,URINE NEGATIVE (NEGATIVE); NITRITE,URINE NEGATIVE (NEGATIVE); PH,URINE 6 (4.5-8.0); PROTEIN,URINE NEGATIVE (NEGATIVE); UROBILINOGEN,URINE NORMAL MG/DL (0.0-1.0)
[2019-08-05 18:59] VITALS: BP 101/68
--- NOTE | 2019-08-05 18:59 | NUR ---
ER Nurse Note: Pt remains at baseline. All orders completed per ERMD orders. Pt satting well and tolerating vent. Suction as needed. Pt cleaned, skin reddness and rash like but intact. Picture taken and uploaded. Pt has g-tube, clamped. CRE/VRE, MRSA swabs done. All safety measures met; will endorse to oncoming shift for continuity of care.
--- NOTE | 2019-08-05 19:06 | NUR ---
ED Nurse Note: Received report from Wanda JOHNSON. Pt wake and alert, non verbal but follows slight command. GT in placed. Pt is on vent, tolerating well. Not in any distress. Will cont to monitor.
[2019-08-05] MEDS ORDERED: FERROUS SULFAT325 MG ORAL (19:34)
[2019-08-05] MEDS ORDERED: TYLENOL EXTRA500 MG ORAL (19:34)
--- NOTE | 2019-08-05 19:56 | NUR ---
ED Nurse Note: Report given to Jayesh JOHNSON.
[2019-08-05 20:00] VITALS: BP 105/89
--- NOTE | 2019-08-05 20:00 | NUR ---
TRANSFER TO FLOOR: Patient transferred to SDU. Report given to Jayesh JOHNSON. Pt alert and orientedx1, non verbal. Not in any distress. Sinus rhythm. Gt patent and intact. On vent, tolerating well. IV line on left AC 18g patent and intact. Pt is on contact isolation for C-diff. noted with rash/ redness on sacral area. Med recon done. All belongings sent with the patient.
--- NOTE | 2019-08-05 20:20 | NUR ---
NURSE NOTES: Pt transferred from ER to SDU via [facility]. air sampling and monitoring applied. Belonging checked with RN. Skin checked, sacral redness noted, picture taken. Pt, A/O x1-2, non-verbal, able to follow simple command. SB on playground monitor with HR of 50s. Trach to vent, SIMV, TV 500, PEEP 5, FIO2 35%. GT intact, no residual noted, flushing well. IV on L AC 18G noted. VS, BP 115/56, P 56, R 20, SaO2 95%, T 99.1 noted. Oral care given. Purewick in palced. Bed in the lowest position. Side rails up x2. Call light within reach. will continue to monitor.
[2019-08-05 21:00] VITALS: BP 115/56
[2019-08-06] VITALS: BP 90/47
--- NOTE | 2019-08-06 00:36 | NUR ---
NURSE NOTES: pt sleeping in the bed. Noted pt BP of 90/47, HR 50 noted, no change in mental status noted. Tolerating well with current vent setting. BM x1 noted. Oral care given. Bed bath given. Reposition done. Will continue to monitor.
--- NOTE | 2019-08-06 03:28 | NUR ---
NURSE NOTES: Noted when pt sleeping, HR goes down to 46. BP 99/48 noted. No fever. Tolerating well with current vent setting, no sob, sat at 98%. Pt arousable and able to move extremities. Will notify regarding HR
[2019-08-06 04:00] VITALS: BP 99/46
[2019-08-06] MEDS: Vancomycin 500mg/D5W 110ml IVPB SCH ×4 (05:35→18:35)
[2019-08-06] MEDS: Acetaminophen 650mg/20.3ml GT PRN (05:49)
[2019-08-06 06:28] LABS: HEMATOCRIT 24.3 % (37.0-47.0); MEAN CORPUSCULAR VOLUME 87 FL (80-99); PLATELET COUNT 364 K/UL (150-450); RED CELL DISTRIBUTION WIDTH 13.6 % (11.6-14.8); WHITE BLOOD COUNT 21.7 K/UL (4.8-10.8)
[2019-08-06 06:48] LABS: ANION GAP 8 mmol/L (5-15); BLOOD UREA NITROGEN 15 mg/dL (7-18); CARBON DIOXIDE 25 MMOL/L (21-32); CHLORIDE 113 MMOL/L (98-107); CREATININE 0.5 MG/DL (0.55-1.30); POTASSIUM 3.9 MMOL/L (3.5-5.1); SODIUM 146 MMOL/L (136-145)
--- NOTE | 2019-08-06 07:20 | NUR ---
HAND-OFF: Report given to ALEX Melotn.
--- NOTE | 2019-08-06 07:25 | NUR ---
NURSE NOTES: Received bedside report from Stephen JOHNSON. Pt. in bed, sleeping but arousable. No sign of distress. On SIMV VT500/Fi O2@35%/P5. No grimacing noted. HOB elevated at all times. On GTF Glucerna 1.5 at 50cc/hr. IV at left AC 18g. and left FA 22g. in placed patent/intact running NS at 100cc/hr. Bed in low position, locked. Bed alarm on. Call light within reach. Will cont. to monitor.
[2019-08-06 08:00] VITALS: BP 110/45
[2019-08-06] MEDS: Ferrous Sulfate 300 MG/5 ML UDC GT SCH (08:39)
[2019-08-06] MEDS: Magnesium Oxide 400mg tab GT SCH (08:39)
[2019-08-06] MEDS: Heparin 5000 units/ml inj SUBQ SCH ×2 (08:41→20:02)
[2019-08-06] MEDS ORDERED: Cefepime HCl 1 GM in D5W 55 ML IVPB SCH (09:00)
[2019-08-06 12:00] VITALS: BP 133/58
--- NOTE | 2019-08-06 13:29 | History and Physical Report ---
DATE OF ADMISSION: 08/05/2019 REASON FOR ADMISSION: Fever, sepsis. HISTORY OF PRESENT ILLNESS: This is a 64-year-old female, admitted through the emergency room due to significant fever. At the halfway, the patient with significant leukocytosis. She was given antibiotics and transferred to the [facility]. The patient is unable to give much in the way of history. The patient has had prior bouts of sepsis. She has muscular dystrophy and does have a G-tube with ventilator dependent. PAST MEDICAL HISTORY: Notable for prior sepsis, ventilator-dependent, pneumonia, pleural effusion, UTI, anemia, protein-calorie malnutrition, multiple sclerosis. MEDICATIONS: Reviewed. ALLERGIES: Reviewed. SOCIAL HISTORY: [facility] [place] patient. Nonsmoker and nondrinker. REVIEW OF SYSTEMS: Unobtainable due to the patient's present state. PHYSICAL EXAMINATION: GENERAL: A well-developed female, chronically ill. VITAL SIGNS: Reviewed, chronically bradycardic, which is well known. Blood pressure 110/45, currently afebrile. HEENT: Negative. NECK: Supple. Tracheostomy midline. LUNGS: Coarse breath sounds. CARDIAC: S1, S2. Bradycardic. ABDOMEN: Soft. G-tube in place. EXTREMITIES: No edema. LABORATORY DATA: Reviewed. White cell count 21, previously 35, hemoglobin 8, platelets of 364. Chemistries noted, sodium 146. Albumin is 2.7. IMPRESSION: Respiratory failure, leukocytosis, sepsis, left lower lobe infiltrate, left perihilar changes, moderate protein-calorie malnutrition, tracheostomy, ventilator dependent, multiple sclerosis. RECOMMENDATIONS: Supportive care. IV antibiotics. ID evaluation. Follow up cultures and exam. Follow up laboratories and maintain ventilatory support, feedings, and discharge the patient back to nursing home facility when improved. Hank White M.D. DR: RAH JOB#: [id number] CC:
[2019-08-06] MEDS ORDERED: Tubing IV Secondary IV ONE (13:59)
[2019-08-06 16:00] VITALS: BP 105/54
--- NOTE | 2019-08-06 17:00 | Consultation ---
DATE OF CONSULTATION: 08/06/2019 INFECTIOUS DISEASES CONSULTATION This consult is for coverage of Dr. Gilbert. PRIMARY ATTENDING PHYSICIAN: Reji Del Rio M.D. REASON FOR CONSULTATION: Sepsis and pneumonia. HISTORY OF PRESENT ILLNESS: This is a 64-year-old female, who is a senior living resident admitted yesterday because of fever in senior living. She had the temperature of 100.8 degrees and had pulse of 108 in senior living. In the hospital, her leukocytosis was 35.4, but did not have fever or tachycardia. PAST MEDICAL HISTORY: Significant for ventilator-dependent respiratory failure, anemia, hypertension, multiple sclerosis, had previous history of pneumonia, admission on June 22, 2019, had another admission also earlier in May. At that time, she was found to have ischemic colitis and biopsies. ALLERGIES: Allergic to penicillin. MEDICATIONS: Getting Lipitor, ferrous sulfate, midodrine, cefepime, vancomycin, and Tylenol. SOCIAL HISTORY: , senior living resident, bedbound. No history of alcohol, drug abuse, or smoking. REVIEW OF SYSTEMS: Very limited. No significant coughing. PHYSICAL EXAMINATION: VITAL SIGNS: Temperature 98 degrees, pulse 43, and blood pressure 110/45. GENERAL: The patient seems to be very thin, has a lot of muscle atrophy. HEAD AND NECK: Status post tracheostomy. She is blind in the left eye. HEART: Bradycardic. LUNGS: Clear. ABDOMEN: Soft, nontender. G-tube feeding. EXTREMITIES: She has no edema. LABORATORY AND DIAGNOSTIC DATA: Influenza A and B tests were negative. Sputum culture is pending. WBC today is 21.7, hemoglobin 8, hematocrit 24.3, and platelets is 364,000. Sodium 146, potassium 3.9, chloride 113, bicarb 25, BUN 15, and creatinine 0.5. AST is 99, ALT 141, and alkaline phosphatase is 445 Lactic acid is within normal limit. Chest x-ray, consolidation and collapse, retrocardiac left lower lobe. IMPRESSION: Sepsis with fever and tachycardia, source seems to be ventilator associated pneumonia. She has elevated transaminase level, multiple sclerosis, anemia, hypertension, ventilator-dependent respiratory failure, and penicillin allergy. RECOMMENDATIONS: Continue cefepime and vancomycin. We will follow up the culture. If the patient did not have abdominal ultrasound, we will order to rule out biliary disease. At the end of my exam, I thank Dr. White for involving me in the care of this patient. Reji Riddle M.D. DR: Zhanna JOB#: [id number] CC: GORDON
--- NOTE | 2019-08-06 19:07 | NUR ---
RESPIRATORY NOTE: Received pt on SIMV 10, 500VT, 35%, PEEP +5, PS 10. Pt is trach-dependent w/ a cuffed, Portex 8 tube. Pt is alert/follows commands. B/S rajat. rhonchi, sxn small to moderate amounts of thick, yellow secretions. Vent plugged into red outlet, ambubag at bedside. Pt in no apparent distress at this time. Will continue plan of care.
--- NOTE | 2019-08-06 19:34 | NUR ---
NURSE NOTES: Received report from ALEX Melton, pt. in bed awake- appears to be alert to name- able to follow simple commands- no signs or symptoms of acute cardiac or respiratory distress noted, call light within easy reach, bed alarm on, side rails up x's 3 and safety brakes engaged, pt. appears to be tolerating current vent settings SG IMV 10, TV 500, peep 5, Fio2 at 35%- no distress noted, pt. has G tube running Osmolite at cc/hr- no residual noted, LAC G running NS at 18G IV intact and patent, LFA 22G running NS at 100cc/hr- IV intact and patent, safety measures continued, will continue with plan of care.
--- NOTE | 2019-08-06 19:38 | NUR ---
HAND-OFF: Report given to Frances JOHNSON. Pt. remain stable.
[2019-08-06 20:00] VITALS: BP 115/57
[2019-08-06] MEDS: Cefepime 2gm/D5W 110ml IV SCH ×2 (20:01)
[2019-08-07] VITALS: BP 104/52
[2019-08-07 04:00] VITALS: BP 110/63
[2019-08-07 05:17] LABS: HEMOGLOBIN 7.8 G/DL (12.0-16.0); MEAN CORPUSCULAR VOLUME 87 FL (80-99); PLATELET COUNT 344 K/UL (150-450); RED BLOOD COUNT 2.75 M/UL (4.20-5.40); RED CELL DISTRIBUTION WIDTH 14.2 % (11.6-14.8); WHITE BLOOD COUNT 9.8 K/UL (4.8-10.8)
[2019-08-07 05:51] LABS: ALANINE AMINOTRANSFERASE 119 U/L (12-78); ALBUMIN 1.9 G/DL (3.4-5.0); ALBUMIN/GLOBULIN RATIO 0.4 (1.0-2.7); ALKALINE PHOSPHATASE 352 U/L (46-116); ANION GAP 11 mmol/L (5-15); ASPARTATE AMINO TRANSFERASE 83 U/L (15-37); BILIRUBIN,TOTAL 0.2 MG/DL (0.2-1.0); BLOOD UREA NITROGEN 10 mg/dL (7-18); CALCIUM 8.8 MG/DL (8.5-10.1); CARBON DIOXIDE 22 MMOL/L (21-32); CHLORIDE 111 MMOL/L (98-107); CREATININE 0.5 MG/DL (0.55-1.30); POTASSIUM 3.8 MMOL/L (3.5-5.1); SODIUM 144 MMOL/L (136-145)
--- NOTE | 2019-08-07 05:59 | NUR ---
NURSE NOTES: per Sepideh at [facility] okay to continue same dose of Vancomycin.
--- NOTE | 2019-08-07 06:15 | NUR ---
NURSE NOTES: Vancomycin d/c by pharmacy for 0600.
--- NOTE | 2019-08-07 07:15 | NUR ---
HAND-OFF: Report given to Deya Hicks, RN, pt. remains stable and no signs of distress noted- nurse aware to f/u with doctor on any am abnormal labs- HGB trending down.
--- NOTE | 2019-08-07 07:30 | NUR ---
NURSE NOTES: Received report from ALEX Daniels.The patient is resting on the bed without acute distress or shortness of breath. The patient's bed in the lowest position, call light in reach, and fall and aspiration precaution reinforced. IV site intact and patent and running NaCl @100mL/hr. G tube intact and running formula as ordered. Notified Dr. White regarding abnormal hemoglobin. Dr. White ordered 2 unit PRBC transfusion. Will continue to monitor trend of fever. Will continue plan of care. Addendum: 08/07/19 at 1411 by Rob Falk RN The patient is on mechanical ventilator at setting of Portex 8, SIMV 10, TV 500, PEEP 5, FiO2 35%, Pressure support 10 per order.
[2019-08-07 08:00] VITALS: BP 130/68
[2019-08-07] MEDS: Heparin 5000 units/ml inj SUBQ SCH ×2 (09:00→21:51)
[2019-08-07] MEDS: Ferrous Sulfate 300 MG/5 ML UDC GT SCH (09:31)
[2019-08-07] MEDS: Magnesium Oxide 400mg tab GT SCH (09:31)
[2019-08-07] MEDS: Cefepime 2gm/D5W 110ml IV SCH ×4 (09:32→21:50)
--- NOTE | 2019-08-07 10:00 | NUR ---
NURSE NOTES: The patient is stable without acute distress or shortness of breath. Called blood bank to check whether the blood is ready but not ready yet. Will follow up and continue plan of care.
--- NOTE | 2019-08-07 10:06 | NUR ---
*-* NO INSURANCE INFORMATION ON THE BAR UNABLE TO SEND CLINICALS OR REVIEWS *-*
--- NOTE | 2019-08-07 10:30 | NUR ---
NURSE NOTES: Paged Dr. Gilbert regarding active MRSA nares. No new order yet. Will continue plan of care.
--- NOTE | 2019-08-07 10:48 | NUR ---
*-* INSURANCE *-* ALL CLINICALS HAVE BEEN FAXED TO: JARR[facility] DORSE[facility] P: [phone] F: [phone]
--- NOTE | 2019-08-07 11:01 | NUR ---
RD ASSESSMENT & RECOMMENDATIONS SEE CARE ACTIVITY FOR COMPLETE ASSESSMENT DAILY ESTIMATED NEEDS: Needs based on Critical care, wasting 47.7kg 30-35 kcals/kg 2709-1398 total kcals 1.25-2 g protein/kg 60-95 g total protein 25-30 mL/kg 4838-6669 total fluid mLs NUTRITION DIAGNOSIS: Swallowing difficulty related respiratory status as evidenced by pt is Trach and PEG dep. CURRENT TF:Osmolite 1.5 @ 50ml/hr x 20 hrs ENTERAL NUTRITION RECOMMENDATIONS: Osmolite 1.5 @ 50ml/hr x 20 hrs + Prosource x1 pack daily to provide 1000ml, 1500kcal, 63g + 11g prot, 762ml free water - Maintain current TF - Add Prosource 1 pack daily to better meet est pro needs. - Flush per MD, HOB over 30 degrees ADDITIONAL RECOMMENDATIONS: 1) Calibrated bedscale wt 2) Check lytes daily, replete as needed 3) F/up w/ WC eval. Rec BASHIR BID prophy .
--- NOTE | 2019-08-07 11:17 | Infectious Diseases Prog Note ---
Assessment/Plan Assessment/Plan antibiotics : vancomycin iv, cefepime A 1. gram negative pneumonia 2. respiratory failure 3. leucocytosis improving 4. hypertension 5. multiple sclerosis P 1. continue iv vancomycin, cefepime 2. will follow up cultures Subjective ROS Limited/Unobtainable: Yes Allergies: Coded Allergies: PENICILLINS (Verified Allergy, Unknown, 06/11/19) Objective Vital Signs Last 24 Hour Vital Signs Date Time Temp Pulse Resp B/P (MAP) Pulse Ox O2 Delivery O2 Flow Rate FiO2 08/07/19 09:00 50 16 35 08/07/19 08:00 35 08/07/19 08:00 97.1 61 18 130/68 (88) 98 08/07/19 06:54 41 10 35 08/07/19 05:08 53 11 35 08/07/19 04:00 35 08/07/19 04:00 Mechanical Ventilator 08/07/19 04:00 50 08/07/19 04:00 97.8 50 16 110/63 (79) 100 08/07/19 02:51 50 10 35 08/07/19 01:02 51 10 35 08/07/19 00:00 98.4 54 18 104/52 (69) 100 08/07/19 00:00 35 08/07/19 00:00 Mechanical Ventilator 08/06/19 23:23 53 08/06/19 23:10 53 11 35 08/06/19 20:57 60 10 35 08/06/19 20:00 Mechanical Ventilator 08/06/19 20:00 98.5 59 20 115/57 (76) 100 08/06/19 20:00 35 08/06/19 19:24 50 08/06/19 19:03 59 12 35 08/06/19 17:15 64 14 35 08/06/19 16:00 35 08/06/19 16:00 97.8 60 20 105/54 (71) 100 08/06/19 16:00 Mechanical Ventilator 08/06/19 15:18 41 08/06/19 14:59 60 16 35 08/06/19 12:38 61 14 35 08/06/19 12:00 35 08/06/19 12:00 Mechanical Ventilator 08/06/19 12:00 98.0 53 21 133/58 (83) 95 08/06/19 11:40 61 Height (Feet): 5 Height (Inches): 2.00 Weight (Pounds): 105 HEENT: status post trach Respiratory/Chest: lungs clear Cardiovascular: normal rate, regular rhythm, no gallop/murmur Abdomen: soft, non tender, other - GT Extremities: no edema Microbiology Date/Time Source Procedure Growth Status 08/05/19 15:00 Blood Blood Culture - Preliminary NO GROWTH AFTER 24 HOURS Resulted 08/05/19 14:45 Blood Blood Culture - Preliminary NO GROWTH AFTER 24 HOURS Resulted 08/05/19 19:30 Nasal Nares MRSA Culture - Final Staphylococcus Aureus - Mrsa Complete 08/05/19 19:30 Sputum Gram Stain - Final Resulted 08/05/19 19:30 Sputum Culture - Preliminary Gram Negative Surinder Resulted 08/05/19 15:00 Nasal Nares - Final Complete 08/05/19 15:00 Nasal Nares - Final Complete 08/05/19 19:30 Rectum VRE Culture - Final Enterococcus Faecalis - Vre Complete Laboratory Tests Test 08/07/19 03:40 White Blood Count 9.8 K/UL (4.8-10.8) # Red Blood Count 2.75 M/UL (4.20-5.40) L Hemoglobin 7.8 G/DL (12.0-16.0) L Hematocrit 24.0 % (37.0-47.0) L Mean Corpuscular Volume 87 FL (80-99) Mean Corpuscular Hemoglobin 28.3 PG (27.0-31.0) Mean Corpuscular Hemoglobin Concent 32.5 G/DL (32.0-36.0) Red Cell Distribution Width 14.2 % (11.6-14.8) Platelet Count 344 K/UL (150-450) Mean Platelet Volume 4.9 FL (6.5-10.1) L Neutrophils (%) (Auto) % (45.0-75.0) Lymphocytes (%) (Auto) % (20.0-45.0) Monocytes (%) (Auto) % (1.0-10.0) Eosinophils (%) (Auto) % (0.0-3.0) Basophils (%) (Auto) % (0.0-2.0) Sodium Level 144 MMOL/L (136-145) Potassium Level 3.8 MMOL/L (3.5-5.1) Chloride Level 111 MMOL/L (98-107) H Carbon Dioxide Level 22 MMOL/L (21-32) Anion Gap 11 mmol/L (5-15) Blood Urea Nitrogen 10 mg/dL (7-18) Creatinine 0.5 MG/DL (0.55-1.30) L Estimat Glomerular Filtration Rate > 60 mL/min (>60) Glucose Level 99 MG/DL (74-106) Calcium Level 8.8 MG/DL (8.5-10.1) Total Bilirubin 0.2 MG/DL (0.2-1.0) Aspartate Amino Transf (AST/SGOT) 83 U/L (15-37) H Alanine Aminotransferase (ALT/SGPT) 119 U/L (12-78) H Alkaline Phosphatase 352 U/L (46-116) H Total Protein 6.2 G/DL (6.4-8.2) L Albumin 1.9 G/DL (3.4-5.0) L Globulin 4.3 g/dL Albumin/Globulin Ratio 0.4 (1.0-2.7) L Vancomycin Level Trough 13.1 ug/mL (5.0-12.0) H Current Medications Medications (Trade) Dose Ordered Sig/Daja Route PRN Reason Start Time Stop Time Status Last Admin Dose Admin Acetaminophen (Tylenol) 650 mg Q4H PRN GT Mild Pain/Temp > 100.5 08/05/19 21:15 09/04/19 21:14 08/06/19 05:49 Al Hydroxide/Mg Hydroxide (Mylanta) 30 ml Q4H PRN GT heartburn 08/05/19 21:15 09/04/19 21:14 Atorvastatin Calcium (Lipitor) 10 mg BEDTIME GT 08/06/19 21:00 09/05/19 20:59 08/06/19 20:02 Cefepime HCl 2 gm/ Dextrose 110 ml @ 220 mls/hr EVERY 12 HOURS IV 08/06/19 21:00 08/13/19 20:59 08/07/19 09:32 Ferrous Sulfate (Feosol) 330 mg DAILY GT 08/06/19 09:00 09/05/19 08:59 08/07/19 09:31 Heparin Sodium (Porcine) (Heparin 5000 units/ml) 5,000 units EVERY 12 HOURS SUBQ 08/06/19 09:00 09/20/19 08:59 08/06/19 20:02 Lansoprazole (Prevacid) 30 mg DAILY GT 08/06/19 09:00 09/05/19 08:59 08/07/19 09:31 Magnesium Oxide (Mag-Ox 400mg) 400 mg DAILY GT 08/06/19 09:00 09/05/19 08:59 08/07/19 09:31 Midodrine (Pro-Amatine) 5 mg TID GT 08/06/19 09:00 09/05/19 08:59 08/07/19 09:31 Saccharomyces Boulardii (Florastor) 250 mg DAILY GT 08/06/19 09:00 09/05/19 08:59 08/07/19 09:31 Sodium Chloride 1,000 ml @ 100 mls/hr Q10H IV 08/05/19 21:15 09/04/19 21:14 08/07/19 02:31 Vancomycin HCl (Vanco rx to dose) 1 ea DAILY PRN MISC Per rx protocol 08/05/19 21:15 09/04/19 21:14 Vancomycin HCl 750 mg/Dextrose 275 ml @ 183.333 mls/hr Q12H IVPB 08/07/19 18:00 08/12/19 17:59 Gregorio Gilbert MD Aug 07, 2019 11:17
--- NOTE | 2019-08-07 11:50 | NUR ---
NURSE NOTES: Started first unit of PRBC transfusion per Dr. White's order. The patient is stable without acute distress or shortness of breath. No fever noted. Will continue plan of care.
[2019-08-07 12:00] VITALS: BP 140/64
--- NOTE | 2019-08-07 12:00 | NUR ---
NURSE NOTES: Notified Dr. White for extreme bradycardia. Dr. White consulted with Dr. Polanco. Informed Dr. Polanco regarding new consult. Will continue plan of care.
[2019-08-07] MEDS: Acetaminophen 650mg/20.3ml GT PRN ×2 (12:02→17:23)
--- NOTE | 2019-08-07 14:00 | NUR ---
NURSE NOTES: The patient is stable without acute distress or shortness of breath. Tolerating blood transfusion well. Will continue plan of care.
--- NOTE | 2019-08-07 14:37 | NUR ---
CAFE SERVERSUPERVISOR BLOOD DONOR RECRUITERS 64 YO FEMALE BIBA FROM [facility] TO ER CC TEMP 102.8 TYLENOL GIVEN SI: RESP FAILURE TRACH/VENT DEPENDENT,FEVER T. 99.8 HR 98 RR 12 B/P 92/62 SIMV 10 TV 500 FIO2 30% PEEP 5 PS 10 WBC 35.4 BUN 24 AST 99 ALT 141 ALK PHOS 445 BNP 86297 CXR=Increased collapse, consolidated appearance of the retrocardiac left lower lobe with persistent left perihilar ill-defined opacity seen. IS: IV BOLUS NS X 3 LITERS ROCEPHIN IV AZITHROMYCIN IV VANCO IV ADMITTED TO STEP DOWN@ 1999 STEP DOWN STATUS DCP RETURN TO [facility]
[2019-08-07 16:00] VITALS: BP 116/49
--- NOTE | 2019-08-07 17:00 | NUR ---
NURSE NOTES: Started second unit PRBC transfusion. Tolerating well. The patient is stable without acute distress or shortness of breath. Will continue plan of care.
[2019-08-07] MEDS: Vancomycin 750mg/D5W 275ml IVPB SCH ×2 (17:22)
--- NOTE | 2019-08-07 17:49 | General Progress Note ---
Assessment/Plan Assessment/Plan: Respiratory failure, leukocytosis, sepsis, left lower lobe infiltrate, left perihilar changes, moderate protein-calorie malnutrition, tracheostomy, ventilator dependent, multiple sclerosis. PLAN care as is vent noted feeds ID clearance wbc improved impression, plan, and exam edited and reviewed in detail care discussed with RN Subjective ROS Limited/Unobtainable: Yes Allergies: Coded Allergies: PENICILLINS (Verified Allergy, Unknown, 06/11/19) Subjective on vent Objective Last 24 Hour Vital Signs Date Time Temp Pulse Resp B/P (MAP) Pulse Ox O2 Delivery O2 Flow Rate FiO2 08/07/19 17:15 68 12 35 08/07/19 15:24 36 11 35 08/07/19 13:22 42 10 35 08/07/19 12:00 Mechanical Ventilator 08/07/19 12:00 45 08/07/19 12:00 35 08/07/19 12:00 97.6 46 18 140/64 (89) 100 08/07/19 11:28 46 16 35 08/07/19 09:00 50 16 35 08/07/19 08:00 Mechanical Ventilator 08/07/19 08:00 35 08/07/19 08:00 46 08/07/19 08:00 97.1 61 18 130/68 (88) 98 08/07/19 06:54 41 10 35 08/07/19 05:08 53 11 35 08/07/19 04:00 35 08/07/19 04:00 Mechanical Ventilator 08/07/19 04:00 50 08/07/19 04:00 97.8 50 16 110/63 (79) 100 08/07/19 02:51 50 10 35 08/07/19 01:02 51 10 35 08/07/19 00:00 98.4 54 18 104/52 (69) 100 08/07/19 00:00 35 08/07/19 00:00 Mechanical Ventilator 08/06/19 23:23 53 08/06/19 23:10 53 11 35 08/06/19 20:57 60 10 35 08/06/19 20:00 Mechanical Ventilator 08/06/19 20:00 98.5 59 20 115/57 (76) 100 08/06/19 20:00 35 08/06/19 19:24 50 08/06/19 19:03 59 12 35 Intake and Output 08/06/19 08/07/19 19:00 07:00 Intake Total 1780 ml 1909 ml Output Total 550 ml 500 ml Balance 1230 ml 1409 ml Intake Free Water 200 ml 50 ml IV Total 1200 ml 1259 ml Tube Feeding 380 ml 600 ml Output Urine Total 550 ml 500 ml # Voids 1 # Bowel Movements 1 4 Laboratory Tests 08/07/19 03:40: White Blood Count 9.8#, Red Blood Count 2.75L, Hemoglobin 7.8L, Hematocrit 24.0L , Mean Corpuscular Volume 87, Mean Corpuscular Hemoglobin 28.3, Mean Corpuscular Hemoglobin Concent 32.5, Red Cell Distribution Width 14.2, Platelet Count 344, Mean Platelet Volume 4.9L, Neutrophils (%) (Auto) , Lymphocytes (%) ( Auto) , Monocytes (%) (Auto) , Eosinophils (%) (Auto) , Basophils (%) (Auto) , Sodium Level 144, Potassium Level 3.8, Chloride Level 111H, Carbon Dioxide Level 22, Anion Gap 11, Blood Urea Nitrogen 10, Creatinine 0.5L, Estimat Glomerular Filtration Rate > 60, Glucose Level 99, Calcium Level 8.8, Total Bilirubin 0.2, Aspartate Amino Transf (AST/SGOT) 83H, Alanine Aminotransferase ( ALT/SGPT) 119H, Alkaline Phosphatase 352H, Total Protein 6.2L, Albumin 1.9L, Globulin 4.3, Albumin/Globulin Ratio 0.4L, Vancomycin Level Trough 13.1H Height (Feet): 5 Height (Inches): 2.00 Weight (Pounds): 105 Objective WDWN trach and gt clear breath sounds bilaterally without rhonchi or wheeze [id number] without MRG NABS nontender no HSM no CCE nonfocal Hank White MD Aug 07, 2019 17:49
--- NOTE | 2019-08-07 19:15 | NUR ---
NURSE NOTES: Received report from Fabiola Falk RN. Pt. in bed awake/alert/Ox3 Forgetful. Follows simple commands. Respirations even and unlabored. No sob or distress noted. Denies pain or discomfort. Call light within reach, bed alarm and safety brakes engaged, side rails upX3 Pt. on vent w/settings IMV 10, TV 500, peep 5, Fio2 35%. G-tube in place running Osmolite at 40cc/hr(goal at 50) w/no residual noted. Lt FA#20 infusing well of NS at 100/hr. Lt hand 20G saline lock intact and patent. SB as long [address] White made aware. Dr. Polanco consulted. Will continue safety measures and POC.
--- NOTE | 2019-08-07 19:30 | NUR ---
HAND-OFF: Report given to ALEX Smith. The patient is resting on the bed without acute distress or shortness of breath. The patient's bed in the lowest position, call light in reach, and fall and aspiration precaution reinforced. IV site on L hand and L FA intact and patent. Second PRBC running per order. The patient is on Portex 8, SIMV 10, TV 500, PEEP 5, FiO2 35%, Pressure support 10 and oxygen saturation 100%. The patient's G tube intact and running formula per order. New foreign exchange clerk consult to Dr. Polanco per Dr. White, and Dr. Polanco was notified. Endorsed plan of care.
[2019-08-07 20:00] VITALS: BP 125/56
--- NOTE | 2019-08-07 21:52 | NUR ---
NURSE NOTES: Heparin held d/t Hgb 7.8
[2019-08-08] VITALS: BP 117/56
--- NOTE | 2019-08-08 | NUR ---
NURSE NOTES: Incontinent of urine. Diaper changed. Bed bath given. Condition unchanged. No distress noted
--- NOTE | 2019-08-08 02:45 | Consultation ---
DATE OF CONSULTATION: 08/07/2019 CONSULTING PHYSICIAN: Agapito Polanco M.D. REQUESTING PHYSICIAN: Dr. Hank White. REASON FOR CONSULTATION: Bradycardia. HISTORY OF PRESENT ILLNESS: This is a 64-year-old female with ventilator-dependent respiratory failure due to multiple sclerosis who was admitted to the hospital 2 days ago with fevers and leukocytosis and noted to have healthcare associated pneumonia with sepsis. She has been on antimicrobials. She was noted to have rare episodes of bradycardia prompting this consultation. Prior hospitalizations were reviewed. The patient had an echocardiogram here in June 2019 that revealed normal ejection fraction, diastolic dysfunction, and mild mitral and tricuspid regurgitation. Prior EKGs from May and June 2019 have revealed sinus bradycardia with first-degree AV block and nonspecific ST changes with poor R-wave progression. PAST MEDICAL HISTORY: Hyperlipidemia, anemia, multiple sclerosis, respiratory failure. ALLERGIES: Penicillin. MEDICATIONS: Medications have been reviewed. PHYSICAL EXAMINATION: VITAL SIGNS: Blood pressure 140/64, heart rate 46, respiratory rate 18. HEENT: Trach site with thin secretions. LUNGS: Bilateral rhonchi. CARDIAC: Regular rhythm. Slow rate. Normal S1 and S2. ABDOMEN: Soft with G-tube. EXTREMITIES: No edema. LABORATORY DATA: White count down from 35 now to 9.8. Hemoglobin down from 9.9 to 7.8. Chemistry panel today notable for potassium 3.8, sodium 144, bicarbonate 22, BUN 10, creatinine 0.5, and albumin 1.9. ABG today 7.38, 37, 123. INCOMPLETE DICTATION Agapito Polanco M.D. DR: JANAE JOB#: [id number] CC:
[2019-08-08 04:00] VITALS: BP 135/65
--- NOTE | 2019-08-08 04:00 | NUR ---
NURSE NOTES: Pt. sleeping. Easily awakened. Follows simple commands. Respirations even and unlabored. No sob or distress noted. Denies pain or discomfort. Call light within reach, bed alarm and safety brakes engaged, side rails upX3 Pt. G-tube in place running Osmolite at % 50cc/hr(goal is 50) no residual noted. Lt FA#20 infusing well of NS at 100/hr. Lt hand 20G saline lock intact and patent. SB from mid 30's-45 HR. Will continue safety measures and POC.
[2019-08-08] MEDS: Vancomycin 750mg/D5W 275ml IVPB SCH ×2 (06:35)
--- NOTE | 2019-08-08 07:15 | NUR ---
NURSE NOTES: Received report from ALEX Smith. The patient is resting on the bed without acute distress or shortness of breath. The patient's bed in the lowest position, call light in reach, and fall and aspiration precaution reinforced. IV site on L hand 20G and L FA 22G intact and patent, and L FA 22G running NaCl @100mL/hr. The patient is on Portex 8, SIMV 10, TV 500, PEEP 5, FiO2 35%, and pressure support 10, and SpO2 100% on vent setting per order. The patient is on G-tube Osmolite 1.5 @50mL/hr and tolerating well without residual. The patient has sinus bradycardia, and Dr. Polanco was notified. Dr. White ordered to follow up CBC and CMP after 2 unit pRBC transfusion on 08/07/2019. Will continue plan of care.
[2019-08-08 08:00] VITALS: BP 122/62
[2019-08-08] MEDS: Magnesium Oxide 400mg tab GT SCH (08:07)
[2019-08-08] MEDS: Ferrous Sulfate 300 MG/5 ML UDC GT SCH (08:07)
[2019-08-08] MEDS: Heparin 5000 units/ml inj SUBQ SCH ×2 (08:08→20:27)
[2019-08-08 08:15] LABS: BASOPHILS % (AUTO) 0.7 % (0.0-2.0); EOSINOPHILS % (AUTO) 2.9 % (0.0-3.0); HEMATOCRIT 35.8 % (37.0-47.0); HEMOGLOBIN 12.3 G/DL (12.0-16.0); LYMPHOCYTES % (AUTO) 17.8 % (20.0-45.0); MEAN CORPUSCULAR VOLUME 86 FL (80-99); MONOCYTES % (AUTO) 8.9 % (1.0-10.0); NEUTROPHILS % (AUTO) 69.7 % (45.0-75.0); PLATELET COUNT 357 K/UL (150-450); RED BLOOD COUNT 4.16 M/UL (4.20-5.40); RED CELL DISTRIBUTION WIDTH 13.3 % (11.6-14.8); WHITE BLOOD COUNT 7.8 K/UL (4.8-10.8)
[2019-08-08] MEDS: Cefepime 2gm/D5W 110ml IV SCH ×4 (08:21→16:17)
[2019-08-08 08:22] LABS: ANION GAP 8 mmol/L (5-15); BLOOD UREA NITROGEN 10 mg/dL (7-18); CALCIUM 9.3 MG/DL (8.5-10.1); CARBON DIOXIDE 22 MMOL/L (21-32); CHLORIDE 110 MMOL/L (98-107); CREATININE 0.6 MG/DL (0.55-1.30); POTASSIUM 3.5 MMOL/L (3.5-5.1); SODIUM 140 MMOL/L (136-145)
[2019-08-08 08:28] LABS: ALANINE AMINOTRANSFERASE 132 U/L (12-78); ALBUMIN 2.1 G/DL (3.4-5.0); ALBUMIN/GLOBULIN RATIO 0.5 (1.0-2.7); ALKALINE PHOSPHATASE 383 U/L (46-116); ASPARTATE AMINO TRANSFERASE 87 U/L (15-37); BILIRUBIN,TOTAL 0.2 MG/DL (0.2-1.0)
[2019-08-08] MEDS: Acetaminophen 650mg/20.3ml GT PRN (08:35)
--- NOTE | 2019-08-08 09:30 | NUR ---
NURSE NOTES: The patient is stable without acute distress or shortness of breath. No fever noted. The patient's last H/H noted s/p transfusion on 08/07/2019. Will continue plan of care.
--- NOTE | 2019-08-08 10:00 | NUR ---
NURSE NOTES: Dr. Gilbert at the bedside. Informed Dr. Gilbert that the patient does not have fever and has stable WBC but has diarrhea. Dr. Gilbert ordered C. diff. Carried out the order. Will continue plan of care.
--- NOTE | 2019-08-08 10:35 | Infectious Diseases Prog Note ---
"Assessment/Plan Assessment/Plan antibiotics : vancomycin iv, cefepime A 1. streptococcus | pseudomonas | providencia | gram negative pneumonia 2. respiratory failure 3. leucocytosis resolved 4. hypertension 5. multiple sclerosis P 1. continue cefepime 2. d/c iv vancomycin 3. stool for c.diff 4. will follow up cultures Subjective Constitutional: Denies: fever, chills Respiratory: Denies: shortness of breath, dry cough Gastrointestinal/Abdominal: Reports: diarrhea; Denies: nausea, vomiting Musculoskeletal: Denies: pain Allergies: Coded Allergies: PENICILLINS (Verified Allergy, Unknown, 06/11/19) Objective Vital Signs Last 24 Hour Vital Signs Date Time Temp Pulse Resp B/P (MAP) Pulse Ox O2 Delivery O2 Flow Rate FiO2 08/08/19 09:24 55 18 35 08/08/19 08:00 36 08/08/19 08:00 35 08/08/19 08:00 98.0 39 18 122/62 (82) 100 08/08/19 08:00 Mechanical Ventilator 08/08/19 07:15 53 10 35 08/08/19 05:27 50 12 35 08/08/19 04:00 Mechanical Ventilator 08/08/19 04:00 34 08/08/19 04:00 97.9 51 17 135/65 (88) 100 08/08/19 03:30 38 10 35 08/08/19 01:15 41 11 35 08/08/19 00:03 37 08/08/19 00:02 35 08/08/19 00:00 97.9 47 22 117/56 (76) 100 08/07/19 23:58 35 08/07/19 23:58 Mechanical Ventilator 08/07/19 23:46 40 08/07/19 23:27 42 10 35 08/07/19 21:30 40 24 35 08/07/19 20:00 Mechanical Ventilator 08/07/19 20:00 35 08/07/19 20:00 98.0 41 20 125/56 (79) 100 08/07/19 19:30 44 11 35 08/07/19 19:28 35 08/07/19 17:15 68 12 35 08/07/19 16:00 35 08/07/19 16:00 98.7 43 18 116/49 (71) 100 08/07/19 16:00 39 08/07/19 16:00 Mechanical Ventilator 08/07/19 15:24 36 11 35 08/07/19 13:22 42 10 35 08/07/19 12:00 Mechanical Ventilator 08/07/19 12:00 45 08/07/19 12:00 35 08/07/19 12:00 97.6 46 18 140/64 (89) 100 08/07/19 11:28 46 16 35 Height (Feet): 5 Height (Inches): 2.00 Weight (Pounds): 105 HEENT: status post trach Respiratory/Chest: lungs clear Cardiovascular: normal rate, regular rhythm, no gallop/murmur Abdomen: soft, non tender, other - GT Extremities: no edema Microbiology Date/Time Source Procedure Growth Status 08/05/19 15:00 Blood Blood Culture - Preliminary NO GROWTH AFTER 48 HOURS Resulted 08/05/19 14:45 Blood Blood Culture - Preliminary NO GROWTH AFTER 48 HOURS Resulted 08/05/19 19:30 Nasal Nares MRSA Culture - Final Staphylococcus Aureus - Mrsa Complete 08/05/19 19:30 Sputum Gram Stain - Final Resulted 08/05/19 19:30 Sputum Culture - Preliminary Providencia Stuartii Pseudomonas Aeruginosa Gram Negative Bacillus 3 Streptococcus Group G Resulted 08/05/19 15:00 Nasal Nares - Final Complete 08/05/19 15:00 Nasal Nares - Final Complete 08/05/19 19:30 Rectum - Final NO CARBAPENEM-RESISTANT ENTEROBACTERI... Complete 08/05/19 19:30 Rectum VRE Culture - Final Enterococcus Faecalis - Vre Complete Laboratory Tests Test 08/07/19 21:04 08/08/19 04:30 Arterial Blood pH 7.382 (7.350-7.450) Arterial Blood Partial Pressure CO2 37.3 mmHg (35.0-45.0) Arterial Blood Partial Pressure O2 123.9 mmHg (75.0-100.0) H Arterial Blood HCO3 21.7 mmol/L (22.0-26.0) L Arterial Blood Oxygen Saturation 97.7 % (95-100) Arterial Blood Base Excess -3.0 (-2-2) L Zain Test Positive White Blood Count 7.8 K/UL (4.8-10.8) Red Blood Count 4.16 M/UL (4.20-5.40) L Hemoglobin 12.3 G/DL (12.0-16.0) # Hematocrit 35.8 % (37.0-47.0) #L Mean Corpuscular Volume 86 FL (80-99) Mean Corpuscular Hemoglobin 29.5 PG (27.0-31.0) Mean Corpuscular Hemoglobin Concent 34.2 G/DL (32.0-36.0) Red Cell Distribution Width 13.3 % (11.6-14.8) Platelet Count 357 K/UL (150-450) Mean Platelet Volume 4.6 FL (6.5-10.1) L Neutrophils (%) (Auto) 69.7 % (45.0-75.0) Lymphocytes (%) (Auto) 17.8 % (20.0-45.0) L Monocytes (%) (Auto) 8.9 % (1.0-10.0) Eosinophils (%) (Auto) 2.9 % (0.0-3.0) Basophils (%) (Auto) 0.7 % (0.0-2.0) Sodium Level 140 MMOL/L (136-145) Potassium Level 3.5 MMOL/L (3.5-5.1) Chloride Level 110 MMOL/L (98-107) H Carbon Dioxide Level 22 MMOL/L (21-32) Anion Gap 8 mmol/L (5-15) Blood Urea Nitrogen 10 mg/dL (7-18) Creatinine 0.6 MG/DL (0.55-1.30) Estimat Glomerular Filtration Rate > 60 mL/min (>60) Glucose Level 113 MG/DL (74-106) H Calcium Level 9.3 MG/DL (8.5-10.1) Total Bilirubin 0.2 MG/DL (0.2-1.0) Aspartate Amino Transf (AST/SGOT) 87 U/L (15-37) H Alanine Aminotransferase (ALT/SGPT) 132 U/L (12-78) H Alkaline Phosphatase 383 U/L (46-116) H Total Protein 6.7 G/DL (6.4-8.2) Albumin 2.1 G/DL (3.4-5.0) L Globulin 4.6 g/dL Albumin/Globulin Ratio 0.5 (1.0-2.7) L Thyroid Stimulating Hormone (TSH) 1.090 uiU/mL (0.358-3.740) Current Medications Medications (Trade) Dose Ordered Sig/Daja Route PRN Reason Start Time Stop Time Status Last Admin Dose Admin Acetaminophen (Tylenol) 650 mg Q4H PRN GT Mild Pain/Temp > 100.5 08/05/19 21:15 09/04/19 21:14 08/08/19 08:35 Al Hydroxide/Mg Hydroxide (Mylanta) 30 ml Q4H PRN GT heartburn 08/05/19 21:15 09/04/19 21:14 Atorvastatin Calcium (Lipitor) 10 mg BEDTIME GT 08/06/19 21:00 09/05/19 20:59 08/07/19 21:51 Cefepime HCl 2 gm/ Dextrose 110 ml @ 220 mls/hr EVERY 12 HOURS IV 08/06/19 21:00 08/13/19 20:59 08/08/19 08:21 Ferrous Sulfate (Feosol) 330 mg DAILY GT 08/06/19 09:00 09/05/19 08:59 08/08/19 08:07 Heparin Sodium (Porcine) (Heparin 5000 units/ml) 5,000 units EVERY 12 HOURS SUBQ 08/06/19 09:00 09/20/19 08:59 08/06/19 20:02 Lansoprazole (Prevacid) 30 mg DAILY GT 08/06/19 09:00 09/05/19 08:59 08/08/19 08:07 Magnesium Oxide (Mag-Ox 400mg) 400 mg DAILY GT 08/06/19 09:00 09/05/19 08:59 08/08/19 08:07 Midodrine (Pro-Amatine) 5 mg TID GT 08/06/19 09:00 09/05/19 08:59 08/08/19 08:08 Saccharomyces Boulardii (Florastor) 250 mg DAILY GT 08/06/19 09:00 09/05/19 08:59 08/08/19 08:07 Sodium Chloride 1,000 ml @ 100 mls/hr Q10H IV 08/05/19 21:15 09/04/19 21:14 08/08/19 08:08 Vancomycin HCl (Vanco rx to dose) 1 ea DAILY PRN MISC Per rx protocol 08/05/19 21:15 09/04/19 21:14 Vancomycin HCl 750 mg/Dextrose 275 ml @ 183.333 mls/hr Q12H IVPB 08/07/19 18:00 08/12/19 17:59 08/08/19 06:35 Gregorio Gilbert MD Aug 08, 2019 10:35"
[2019-08-08 12:00] VITALS: BP 126/56
--- NOTE | 2019-08-08 12:03 | NUR ---
OPERATIONS SPECIALISTSSENIOR PRODUCT ANALYST SI; RESP FAILURE TRACH.VENT DEPENDENT,BRADYCARDIA T. 98.0 HR 39 RR 18 B/P 122/62 SIMV 10 TV 500 FIO2 35% PEEP 5 PS 10 AST 87 ALT 132 ALK PHOS 383 IS: MEROPENEM IV CEFEPIME IV HEPARIN SUBC MIDODRINE STEP DOWN STATUS
--- NOTE | 2019-08-08 14:00 | NUR ---
NURSE NOTES: The patient is stable without acute distress or shortness of breath. Tolerating vent setting well. The patient is afebrile. Tolerating tube feeding well. Will continue plan of care.
--- NOTE | 2019-08-08 15:38 | NUR ---
*-* INSURANCE *-* ALL CLINICALS HAVE BEEN FAXED TO: [employer]SE[employer] P: [phone] F: [phone]
[2019-08-08 16:00] VITALS: BP 130/65
--- NOTE | 2019-08-08 16:00 | NUR ---
NURSE NOTES: The patient is stable without acute distress or shortness of breath. Tolerating vent setting and tube feeding well. No fever noted. Will continue plan of care.
--- NOTE | 2019-08-08 16:51 | General Progress Note ---
Assessment/Plan Assessment/Plan: Respiratory failure, leukocytosis, sepsis, left lower lobe infiltrate, left perihilar changes, moderate protein-calorie malnutrition, tracheostomy, ventilator dependent, multiple sclerosis. s/p transfusion PLAN care as is vent noted feeds ID clearance- complete cefipime at snf wbc improved impression, plan, and exam edited and reviewed in detail care discussed with RN Subjective ROS Limited/Unobtainable: Yes Allergies: Coded Allergies: PENICILLINS (Verified Allergy, Unknown, 06/11/19) Subjective on vent Objective Last 24 Hour Vital Signs Date Time Temp Pulse Resp B/P (MAP) Pulse Ox O2 Delivery O2 Flow Rate FiO2 08/08/19 15:21 35 11 35 08/08/19 12:36 45 18 35 08/08/19 12:00 98.3 39 20 126/56 (79) 100 08/08/19 12:00 41 08/08/19 12:00 35 08/08/19 12:00 Mechanical Ventilator 08/08/19 11:09 42 20 35 08/08/19 10:20 36 08/08/19 09:24 55 18 35 08/08/19 08:00 36 08/08/19 08:00 35 08/08/19 08:00 98.0 39 18 122/62 (82) 100 08/08/19 08:00 Mechanical Ventilator 08/08/19 07:15 53 10 35 08/08/19 05:27 50 12 35 08/08/19 04:00 Mechanical Ventilator 08/08/19 04:00 34 08/08/19 04:00 97.9 51 17 135/65 (88) 100 08/08/19 03:30 38 10 35 08/08/19 01:15 41 11 35 08/08/19 00:03 37 08/08/19 00:02 35 08/08/19 00:00 97.9 47 22 117/56 (76) 100 08/07/19 23:58 35 08/07/19 23:58 Mechanical Ventilator 08/07/19 23:46 40 08/07/19 23:27 42 10 35 08/07/19 21:30 40 24 35 08/07/19 20:00 Mechanical Ventilator 08/07/19 20:00 35 08/07/19 20:00 98.0 41 20 125/56 (79) 100 3/16/20 19:30 44 11 35 08/07/19 19:28 35 08/07/19 17:15 68 12 35 Intake and Output 08/07/19 08/08/19 19:00 07:00 Intake Total 725 ml 1160 ml Balance 725 ml 1160 ml Intake Free Water 100 ml IV Total 325 ml 1160 ml Tube Feeding 300 ml # Voids 6 4 # Bowel Movements 1 1 Laboratory Tests 08/07/19 21:04: Arterial Blood pH 7.382, Arterial Blood Partial Pressure CO2 37.3, Arterial Blood Partial Pressure O2 123.9H, Arterial Blood HCO3 21.7L, Arterial Blood Oxygen Saturation 97.7, Arterial Blood Base Excess -3.0L, Zain Test Positive 08/08/19 04:30: White Blood Count 7.8, Red Blood Count 4.16L, Hemoglobin 12.3#, Hematocrit 35.8# L, Mean Corpuscular Volume 86, Mean Corpuscular Hemoglobin 29.5, Mean Corpuscular Hemoglobin Concent 34.2, Red Cell Distribution Width 13.3, Platelet Count 357, Mean Platelet Volume 4.6L, Neutrophils (%) (Auto) 69.7, Lymphocytes ( %) (Auto) 17.8L, Monocytes (%) (Auto) 8.9, Eosinophils (%) (Auto) 2.9, Basophils (%) (Auto) 0.7, Sodium Level 140, Potassium Level 3.5, Chloride Level 110H, Carbon Dioxide Level 22, Anion Gap 8, Blood Urea Nitrogen 10, Creatinine 0.6, Estimat Glomerular Filtration Rate > 60, Glucose Level 113H, Calcium Level 9.3, Total Bilirubin 0.2, Aspartate Amino Transf (AST/SGOT) 87H, Alanine Aminotransferase (ALT/SGPT) 132H, Alkaline Phosphatase 383H, Total Protein 6.7, Albumin 2.1L, Globulin 4.6, Albumin/Globulin Ratio 0.5L, Thyroid Stimulating Hormone (TSH) 1.090 Height (Feet): 5 Height (Inches): 2.00 Weight (Pounds): 105 Objective WDWN trach and gt clear breath sounds bilaterally without rhonchi or wheeze [id number] without MRG NABS nontender no HSM no CCE nonfocal Hank White MD Aug 08, 2019 16:51
--- NOTE | 2019-08-08 17:11 | NUR ---
*-* DISCHARGE PLANNED *-* [id number]
--- NOTE | 2019-08-08 17:11 | NUR ---
*-* DISCHARGE PLANNING *-* PATIENT HAS BEEN REFERRED BACK TO: [facility] P: [phone] F: [phone] EFAX: [phone]
--- NOTE | 2019-08-08 18:00 | NUR ---
NURSE NOTES: Acknowledge the discharge order. Per charge nurse, the patient will be discharged on 08/09/2019. The patient is stable without acute distress or shortness of breath. Will continue plan of care.
[2019-08-08] MEDS ORDERED: CEFEPIME-D2 GM/50 ML IVPB (18:51)
--- NOTE | 2019-08-08 19:20 | NUR ---
HAND-OFF: Report given to ALEX Bay. The patient is resting on the bed without acute distress or shortness of breath. The patient's bed in the lowest position, call light in reach, and fall and aspiration precaution reinforced. The patient is on Portex 8, SIMV 10, TV 500, PEEP 5, FiO2 35%, and Pressure support 10. The patient is on G tube feeding and tolerating tube feeding well. No fever noted. IV site on R FA 20G intact and patent and running IVF per order. Informed Phu regarding discharge order back to [facility] on 08/09/2019. Endorsed plan of care.
--- NOTE | 2019-08-08 19:29 | NUR ---
NURSE NOTES: PATIENT OPEN EYES, ABLE TO EYE CONTACT, ON TRACH TO VENT, PS10/SIMV 10/TV 500/FIO2 35%/PEEP5, O2 SATURATION 100% NOTED, HEART RATE 37/MIN SB NOTED, G TUBE INTACT AND PATENT, ONGOING OSMOLITE 1.5 AT 50ML/HR, NO RESIDUE NOTED, KEPT HOB 30 DEGREES, ABDOMEN SOFT, NO BM STATUS, PPL TO RIGHT FA 20G, INTACT AND PATENT, ONGOING NS AT 100ML/HR VIA PPL, MADE LOWER BED POSITION, ON BED ALARM AND LOCKED, PROVIDED CALL LIGHT WITHIN REACH, WILL CONTINUE TO MONITOR.
[2019-08-08 20:00] VITALS: BP 137/58
--- NOTE | 2019-08-08 21:52 | NUR ---
NURSE NOTES: REPOSITIONED, ORAL CARE WAS DONE, NO PAIN OR SOB NOTED AT THIS TIME.
[2019-08-09] VITALS: BP 131/50
[2019-08-09] MEDS: Cefepime 2gm/D5W 110ml IV SCH ×4 (01:00→09:55)
[2019-08-09 04:00] VITALS: BP 118/48
--- NOTE | 2019-08-09 04:30 | Progress Note ---
DATE: 08/08/2019 CARDIOLOGY PROGRESS NOTE SUBJECTIVE: On vent support. Moderate secretions. Monitor with sinus bradycardia, no pauses. Blood pressure is without any associated compromise. The patient is nonambulatory. OBJECTIVE: VITAL SIGNS: Blood pressure 126/56, pulse 39, and respirations 20. Heart rate 39 to 55. LUNGS: Coarse breath sounds. CARDIAC: Regular rhythm, slow rate. Normal S1 and S2. ABDOMEN: Soft. EXTREMITIES: No edema. IMPRESSION: 1. Multiple sclerosis. 2. Ventilator-dependent respiratory failure with trach. 3. Sinus node disease with bradycardia, probable component of autonomic dysfunction and increased vagal tone. 4. Euthyroid state. PLAN: No urgent indication for pacemaker. May need to consider if performance status improves in the near future or symptomatic bradycardia is noted. We will follow. Agapito Polanco M.D. DR: MARIAELENA JOB#: [id number] CC:
--- NOTE | 2019-08-09 05:15 | NUR ---
NURSE NOTES: FINISHED DOWN TIME, PATIENT ASLEEP STATUS, NO DISTRESS NOTED AT THIS TIME.
--- NOTE | 2019-08-09 07:20 | NUR ---
NURSE NOTES: RECEIVED BED SIDE REPORT FROM MASSIMO RN . RECEIVED PT WITH HOB ELEVATED 45 DEGREE ,AWAKE AND ALERT ORIENTED X3.PT TRACH TO VENT TO TOLERATING WELL CURRENTS VENT SETTINGS,RENDERED TRACH CARE AND SX,D MOD AMT OF YELLOWISH SECRETIONS.FULL BODY ASSESSMENT DONE. PT REPOSITIONED Q2HRS TO PROVIDE COMFORT AND TO PREVENT FURTHER SKIN BREAK DOWN. NO ACUTE DISTRESS NOTED AT THIS TIME. WILL CONT TO MONITOR.
--- NOTE | 2019-08-09 07:35 | NUR ---
NURSE NOTES: ELMO: CALLED BACK FROM [facility]/MICROBIOLOGY DEPT THAT SHE SAID, " PATIENT HAS [facility] PROVABLY, WILL BE DONE TOMORROW."
--- NOTE | 2019-08-09 07:47 | NUR ---
HAND-OFF: Report given to ALEX ENGLISH.
[2019-08-09 08:00] VITALS: BP 131/63
[2019-08-09] MEDS: Ferrous Sulfate 300 MG/5 ML UDC GT SCH (09:50)
[2019-08-09] MEDS: Magnesium Oxide 400mg tab GT SCH (09:50)
[2019-08-09] MEDS: Heparin 5000 units/ml inj SUBQ SCH (09:52)
--- NOTE | 2019-08-09 10:35 | Infectious Diseases Prog Note ---
"Assessment/Plan Assessment/Plan antibiotics : cefepime A 1. streptococcus | pseudomonas | providencia | klebsiella pneumonia 2. respiratory failure 3. leucocytosis resolved 4. hypertension 5. multiple sclerosis P 1. continue cefepime 6 more days 2. will follow up cultures 3. okay for discharge from ID perspective Subjective ROS Limited/Unobtainable: Yes Allergies: Coded Allergies: PENICILLINS (Verified Allergy, Unknown, 06/11/19) Objective Vital Signs Last 24 Hour Vital Signs Date Time Temp Pulse Resp B/P (MAP) Pulse Ox O2 Delivery O2 Flow Rate FiO2 08/09/19 08:00 35 08/09/19 08:00 97.2 42 18 131/63 (85) 100 08/09/19 08:00 Mechanical Ventilator 08/09/19 05:30 55 21 35 08/09/19 04:00 97.2 50 20 118/48 (71) 100 08/09/19 04:00 Mechanical Ventilator 08/09/19 04:00 35 08/09/19 03:19 42 08/09/19 03:05 57 21 35 08/09/19 01:05 60 20 35 08/09/19 00:00 Mechanical Ventilator 08/09/19 00:00 35 08/09/19 00:00 97.0 57 20 131/50 (77) 100 08/08/19 23:45 43 08/08/19 22:59 58 21 35 08/08/19 21:05 60 20 35 08/08/19 20:00 Mechanical Ventilator 08/08/19 20:00 35 08/08/19 20:00 39 08/08/19 20:00 98.1 42 20 137/58 (84) 100 08/08/19 19:32 40 11 35 08/08/19 17:00 40 21 35 08/08/19 16:00 Mechanical Ventilator 08/08/19 16:00 42 08/08/19 16:00 35 08/08/19 16:00 98.1 38 20 130/65 (86) 100 08/08/19 15:21 35 11 35 08/08/19 12:36 45 18 35 08/08/19 12:00 98.3 39 20 126/56 (79) 100 08/08/19 12:00 41 08/08/19 12:00 35 08/08/19 12:00 Mechanical Ventilator 08/08/19 11:09 42 20 35 Height (Feet): 5 Height (Inches): 2.00 Weight (Pounds): 112 HEENT: status post trach Respiratory/Chest: lungs clear Cardiovascular: normal rate, regular rhythm, no gallop/murmur Abdomen: soft, non tender, other - GT Extremities: no edema Current Medications Medications (Trade) Dose Ordered Sig/Daja Route PRN Reason Start Time Stop Time Status Last Admin Dose Admin Acetaminophen (Tylenol) 650 mg Q4H PRN GT Mild Pain/Temp > 100.5 08/05/19 21:15 09/04/19 21:14 08/08/19 08:35 Al Hydroxide/Mg Hydroxide (Mylanta) 30 ml Q4H PRN GT heartburn 08/05/19 21:15 09/04/19 21:14 Atorvastatin Calcium (Lipitor) 10 mg BEDTIME GT 08/06/19 21:00 09/05/19 20:59 08/08/19 20:27 Cefepime HCl 2 gm/ Dextrose 110 ml @ 220 mls/hr Q8HR@0100,0900,1700 IV 08/08/19 17:00 08/15/19 16:59 08/09/19 09:55 Ferrous Sulfate (Feosol) 330 mg DAILY GT 08/06/19 09:00 09/05/19 08:59 08/09/19 09:50 Heparin Sodium (Porcine) (Heparin 5000 units/ml) 5,000 units EVERY 12 HOURS SUBQ 08/06/19 09:00 09/20/19 08:59 08/09/19 09:52 Lansoprazole (Prevacid) 30 mg DAILY GT 08/06/19 09:00 09/05/19 08:59 08/09/19 09:50 Magnesium Oxide (Mag-Ox 400mg) 400 mg DAILY GT 08/06/19 09:00 09/05/19 08:59 08/09/19 09:50 Midodrine (Pro-Amatine) 5 mg TID GT 08/06/19 09:00 09/05/19 08:59 08/09/19 09:50 Saccharomyces Boulardii (Florastor) 250 mg DAILY GT 08/06/19 09:00 09/05/19 08:59 08/09/19 09:50 Sodium Chloride 1,000 ml @ 100 mls/hr Q10H IV 08/05/19 21:15 09/04/19 21:14 08/09/19 04:30 Gregorio Gilbert MD Aug 09, 2019 10:35"
--- NOTE | 2019-08-09 11:08 | NUR ---
NURSE NOTES: SPOKE WITH DR ATKINSON AND STATING THAT SHE ALREADY SAW THE MICROOBIOLOY REPORT AND PT CAN BE DISCHARGE TODAY AND TO CONT WITH CEFEPIME 2GM IVPB X 6 MORE DAYS TO TREAT FOR [facility]. NIKOLAS JOHNSON IN CHARGE SPOKE WITH MEJIA Jose AND MADE AWARE AND NOTIFIED REGARDING DR ATKINSON REVIEW CURRENTS REPORT OF MICROBIOLOGY ,PT HAS POSITIVE [facility] IN [place] AND WILL CONT ON CEFEPIME 2MG IVPB Q 8HRS X 6 MORE DAYS.PT WILL BE DISCHARGE TO [facility] TODAY PER M.D ORDERS. WILL CONT TO MONITOR.
[2019-08-09 12:00] VITALS: BP 149/64
--- NOTE | 2019-08-09 14:00 | NUR ---
NURSE NOTES: REPORT GIVEN TO WAYNE JOHNSON ACLS STAFF OF [facility] ST[facility]. PLACED A TELEPHONE CALL TO DIAMANTE HEMPHILL AND REPORT GIVEN TO STEVEN JOHNSON IN CHARGE OF SUBACUTE UNIT. PT LEFT THE HOSPITAL VIA AMBULANCE ON STABLE CONDITIONS.
--- NOTE | 2019-08-09 16:26 | Pulmonology Progress Note ---
Assessment/Plan Assessment/Plan Pulmonary Progress Note Assessment/Plan: Patient with Respiratory failure, leukocytosis, sepsis, left lower lobe infiltrate, left perihilar changes, moderate protein-calorie malnutrition, tracheostomy, ventilator dependent, multiple sclerosis. Anemia s/p transfusion PLAN care as is vent noted feeds ID clearance- complete cefipime at snf wbc improved impression, plan, and exam edited and reviewed in detail care discussed with RN Subjective ROS Limited/Unobtainable: Yes Allergies: Coded Allergies: PENICILLINS (Verified Allergy, Unknown, 06/11/19) Subjective on vent Objective Vital Signs Noted Laboratory Tests Noted 08/07/19 21:04: Arterial Blood pH 7.382, Arterial Blood Partial Pressure CO2 37.3, Arterial Blood Partial Pressure O2 123.9H, Arterial Blood HCO3 21.7L, Arterial Blood Oxygen Saturation 97.7, Arterial Blood Base Excess -3.0L, Zain Test Positive 08/08/19 04:30: White Blood Count 7.8, Red Blood Count 4.16L, Hemoglobin 12.3#, Hematocrit 35.8# L, Mean Corpuscular Volume 86, Mean Corpuscular Hemoglobin 29.5, Mean Corpuscular Hemoglobin Concent 34.2, Red Cell Distribution Width 13.3, Platelet Count 357, Mean Platelet Volume 4.6L, Neutrophils (%) (Auto) 69.7, Lymphocytes ( %) (Auto) 17.8L, Monocytes (%) (Auto) 8.9, Eosinophils (%) (Auto) 2.9, Basophils (%) (Auto) 0.7, Sodium Level 140, Potassium Level 3.5, Chloride Level 110H, Carbon Dioxide Level 22, Anion Gap 8, Blood Urea Nitrogen 10, Creatinine 0.6, Estimat Glomerular Filtration Rate > 60, Glucose Level 113H, Calcium Level 9.3, Total Bilirubin 0.2, Aspartate Amino Transf (AST/SGOT) 87H, Alanine Aminotransferase (ALT/SGPT) 132H, Alkaline Phosphatase 383H, Total Protein 6.7, Albumin 2.1L, Globulin 4.6, Albumin/Globulin Ratio 0.5L, Thyroid Stimulating Hormone (TSH) 1.090 Height (Feet): 5 Height (Inches): 2.00 Weight (Pounds): 105 Objective WDWN trach and gt clear breath sounds bilaterally without rhonchi or wheeze [id number] without MRG NABS nontender no HSM no CCE nonfocal Subjective ROS Limited/Unobtainable: No Allergies: Coded Allergies: PENICILLINS (Verified Allergy, Unknown, 06/11/19) Objective Last 24 Hour Vital Signs Date Time Temp Pulse Resp B/P (MAP) Pulse Ox O2 Delivery O2 Flow Rate FiO2 08/09/19 12:44 56 20 35 08/09/19 12:00 Mechanical Ventilator 08/09/19 12:00 50 08/09/19 12:00 97.9 54 20 149/64 (92) 100 08/09/19 12:00 35 08/09/19 11:22 54 20 35 08/09/19 09:02 44 19 35 08/09/19 08:00 35 08/09/19 08:00 97.2 42 18 131/63 (85) 100 08/09/19 08:00 44 08/09/19 08:00 Mechanical Ventilator 08/09/19 06:52 43 18 35 08/09/19 05:30 55 21 35 08/09/19 04:00 97.2 50 20 118/48 (71) 100 08/09/19 04:00 Mechanical Ventilator 08/09/19 04:00 35 08/09/19 03:19 42 08/09/19 03:05 57 21 35 08/09/19 01:05 60 20 35 08/09/19 00:00 Mechanical Ventilator 08/09/19 00:00 35 08/09/19 00:00 97.0 57 20 131/50 (77) 100 08/08/19 23:45 43 08/08/19 22:59 58 21 35 08/08/19 21:05 60 20 35 08/08/19 20:00 Mechanical Ventilator 08/08/19 20:00 35 08/08/19 20:00 39 08/08/19 20:00 98.1 42 20 137/58 (84) 100 08/08/19 19:32 40 11 35 08/08/19 17:00 40 21 35 Intake and Output 08/08/19 08/09/19 19:00 07:00 Intake Total 550 ml 1960 ml Output Total 1000 ml Balance 550 ml 960 ml Intake Free Water 100 ml IV Total 100 ml 1310 ml Tube Feeding 350 ml 600 ml Other 50 ml Output Urine Total 1000 ml # Voids 6 1 # Bowel Movements 3 Current Medications Medications (Trade) Dose Ordered Sig/Daja Route PRN Reason Start Time Stop Time Status Last Admin Dose Admin Acetaminophen (Tylenol) 650 mg Q4H PRN GT Mild Pain/Temp > 100.5 08/05/19 21:15 09/04/19 21:14 08/08/19 08:35 Al Hydroxide/Mg Hydroxide (Mylanta) 30 ml Q4H PRN GT heartburn 08/05/19 21:15 09/04/19 21:14 Atorvastatin Calcium (Lipitor) 10 mg BEDTIME GT 08/06/19 21:00 09/05/19 20:59 08/08/19 20:27 Cefepime HCl 2 gm/ Dextrose 110 ml @ 220 mls/hr Q8HR@0100,0900,1700 IV 08/08/19 17:00 08/15/19 16:59 08/09/19 09:55 Ferrous Sulfate (Feosol) 330 mg DAILY GT 08/06/19 09:00 09/05/19 08:59 08/09/19 09:50 Heparin Sodium (Porcine) (Heparin 5000 units/ml) 5,000 units EVERY 12 HOURS SUBQ 08/06/19 09:00 09/20/19 08:59 08/09/19 09:52 Lansoprazole (Prevacid) 30 mg DAILY GT 08/06/19 09:00 09/05/19 08:59 08/09/19 09:50 Magnesium Oxide (Mag-Ox 400mg) 400 mg DAILY GT 08/06/19 09:00 09/05/19 08:59 08/09/19 09:50 Midodrine (Pro-Amatine) 5 mg TID GT 08/06/19 09:00 09/05/19 08:59 08/09/19 13:08 Saccharomyces Boulardii (Florastor) 250 mg DAILY GT 08/06/19 09:00 09/05/19 08:59 08/09/19 09:50 Sodium Chloride 1,000 ml @ 100 mls/hr Q10H IV 08/05/19 21:15 09/04/19 21:14 08/09/19 04:30 Agapito Guardado MD Aug 09, 2019 16:26
--- NOTE | 2019-08-10 03:44 | Progress Note ---
DATE: 08/09/2019 CARDIOLOGY PROGRESS NOTE SUBJECTIVE: Condition remains unchanged. Heart rate with episodes of bradycardia, but no hemodynamic consequence. No pauses noted. OBJECTIVE: VITAL SIGNS: Blood pressure 149/64, heart rate 54, and respiratory rate 20. LUNGS: Coarse breath sounds. Thin trach secretions. CARDIAC: Regular rhythm. Slow rate. Normal S1 and S2. ABDOMEN: Soft. EXTREMITIES: No edema. LABORATORY DATA: Reviewed from August 08, 2019. IMPRESSION: 1. Ventilator-dependent respiratory failure. 2. Multiple sclerosis. 3. Chronic sinus node disease with bradycardia, likely autonomic dysfunction. PLAN: 1. Stable for return to subacute facility. 2. No indication for permanent pacemaker. If performance status improves in the future, this may need to be readdressed. 3. The patient is euthyroid. 4. We will need to avoid beta-sai therapy or drugs with negative chronotropic potential, long-term. Agapito Polanco M.D. DR: DC JOB#: [id number] CC:
--- NOTE | 2019-08-10 10:50 | NUR ---
*-* INSURANCE *-* UPDATED CLINICALS FAXED PT D/C BUT NO D/C SUMMARY IN SYSTEM YET. [facility] P: [phone] F: [phone]
--- NOTE | 2019-08-10 14:48 | Discharge Summary ---
Discharge Summary Discharge Summary _ Discharge summary DATE OF ADMISSION: 08/05/2019 DATE OF DISCHARGE: 08/09/2019 DISCHARGED BY: Dr. White REASON FOR ADMISSION: 64 years old female, with past medical history of ventilator dependent respiratory failure, multiple sclerosis, pneumonia, pleural effusion, anemia, UTI, presented to emergency department due to fever and leukocytosis . Laboratory work-up revealed WBC 35.4, hemoglobin 9.9, hematocrit 30.2, platelet count 491. ABG was stable on current ventilator settings. Lactic acid 1.7. Troponin negative. pro BNP 1541. BUN 24, creatinine 0.8. Glucose 113. Phosphorus 2.1. AST 99, ALT 141, alkaline phosphatase 445. Urinalysis revealed no evidence of urinary tract infection. Chest x-ray demonstrated increased collapse, consolidated appearance of the retrocardiac left lower lobe with persistent left basilar ill-defined opacity. The right lung was clear. Patient subsequently admitted to stepdown unit for further management. CONSULTANTS: bonding molder Dr. Polanco ID specialist Dr. Gilbert HOSPITAL COURSE: Patient admitted to [facility] and started on empiric antibiotics. Ventilator support and tracheostomy care provided. Pulmonary toilet with bronchodilator provided as needed . Patient was suctioned as needed. Patient was followed -up with chest x-ray and ABG. Blood cultures were negative. Influenza swab for A and B was negative. Sputum culture revealed Providencia, Pseudomonas, Klebsiella pneumonia Carbapenem resistant, and Strep group G. Patient was on antibiotic as per ID specialist recommendation. Leukocytosis resolved , no further fevers. Patient noted to have bradycardia. Heart rate somewhere between 39 and 55 . Per bonding molder patient had sinus node disease with bradycardia , probably component of autonomic dysfunction and increased vagal tone. No urgent indication for pacemaker as per bonding molder. Patient may be considered in future if performance status improves or symptomatic bradycardia will develop. Strict aspiration precaution maintained. G-tube feeding with tube feeding formula, goal rate and protein supplements provided as per advanced registered nurse recommendation. Patient was able to tolerate tube feeding. Supportive care provided. SNF medication continued. Hemodynamic status was closely monitored. Blood pressure was supported with midodrine. DVT and GI prophylaxis provided. Bowel regimen instituted. Patient clinically stabilized and was ready for transfer back to subacute group home facility for continuation of care. FINAL DIAGNOSES: Ventilator dependent respiratory failure with tracheostomy status Sepsis Streptococcus/Pseudomonas/Providencia/Klebsiella pneumonia Leukocytosis- resolved Moderate protein calorie malnutrition Hypertension Multiple sclerosis Sinus node disease with bradycardia ; probably component of autonomic dysfunction and increased vagal tone DISCHARGE MEDICATIONS: See Medication Reconciliation list. DISCHARGE INSTRUCTIONS: Patient was discharged to the group home facility. Follow up with medical doctor at the facility. 64 years old male I have been assigned to dictate discharge summary for this account. I was not involved in the patient's management. Vivi Dan NP Aug 10, 2019 14:48
== END 2019-08-09 15:10 | DRG 720 ==
LOC: EDBD 14:27 → EDBEDREQ 14:41 → EMR 15:14 → EDBEDREQ 17:13 → 2W 17:55 → EDBEDREQ 18:32
PROC: 5A1945Z Respiratory Ventilation, 24-96 Consecutive Hours (ICD-10-PCS; principal; 2019-08-05)
PROC: 30233N1 Transfusion of Nonautologous Red Blood Cells into Peripheral Vein, Percutaneous Approach (ICD-10-PCS; 2019-08-07)
DX: A41.9 Sepsis, unspecified organism (principal); J18.9 Pneumonia, unspecified organism; E44.0 Moderate protein-calorie malnutrition; Z68.1 Body mass index [BMI] 19.9 or less, adult; J96.10 Chronic respiratory failure, unspecified whether with hypoxia or hypercapnia; Z99.11 Dependence on respirator [ventilator] status; G35 Multiple sclerosis; Z43.0 Encounter for attention to tracheostomy; J15.6 Pneumonia due to other Gram-negative bacteria; J15.1 Pneumonia due to Pseudomonas; J15.4 Pneumonia due to other streptococci; Z88.0 Allergy status to penicillin; J95.851 Ventilator associated pneumonia; Y84.8 Other medical procedures as the cause of abnormal reaction of the patient, or of later complication, without mention of misadventure at the time of the procedure; E78.5 Hyperlipidemia, unspecified
CPT/HCPCS: 36415; 36600; 71045; 80048; 80053; 80202; 81003; 82550; 82803; 83605; 83690; 83735; 83880; 84100; 84443; 84484; 85007; 85025; 85610; 85730; 86710; 86850; 86900; 86901; 86920; 87040; 87070; 87081; 87181; 87205; 93005; 94003; 94664; 96361; 96365; 96367; 99285; J7030